=== PATIENT | male | born 1970 | race American Indian/Alaskan Native ===

== ENCOUNTER 2018-01-12 07:48 | Emergency (ER) | payer SELFPAY ==
--- NOTE | 2018-01-12 08:50 | XRay Report ---
CHEST TWO VIEWS: 01/12/18 08:36 CLINICAL: Shortness of breath. COMPARISON: None FINDINGS: Mild cardiomegaly. Central vascular congestion with indistinct pulmonary vessels and mild bilateral perihilar haziness. No pulmonary consolidation or pleural effusion. The bones and soft tissues are normal. No tubes or lines. IMPRESSION: CHF with mild perihilar pulmonary edema.
[2018-01-12 08:54] LABS: Basophils # (Auto) 0.1 K/mm3 (0.0-0.1); Basophils % (Auto) 1.2 % (0.0-1.8); Eosinophils # (Auto) 0.1 K/mm3 (0.0-0.4); Eosinophils % (Auto) 0.7 % (0.0-4.3); Hematocrit 41.1 % (35.5-45.6); Hemoglobin 13.5 gm/dl (11.8-15.2); Lymphocytes # (Auto) 2.5 K/mm3 (1.2-5.4); Lymphocytes % (Auto) 29.1 % (13.4-35.0); Mean Corpuscular HGB Conc 33 % (32-34); Mean Corpuscular Hemoglobin 31 pg (28-32); Mean Corpuscular Volume 94 fl (84-94); Monocytes # (Auto) 0.6 K/mm3 (0.0-0.8); Monocytes % (Auto) 7.3 % (0.0-7.3); Platelet Count 224 K/mm3 (140-440); Red Blood Count 4.37 M/mm3 (3.65-5.03)
[2018-01-12 09:06] LABS: BUN/Creatinine Ratio 14; Blood Urea Nitrogen 19 mg/dL (9-20); Calcium 8.9 mg/dL (8.4-10.2); Hemolysis Index 33
[2018-01-12] MEDS ORDERED: APRESOLINE IV ONE (11:34)
[2018-01-12] MEDS ORDERED: LASIX IV ONE (11:34)
--- NOTE | 2018-01-12 11:38 | Emergency Department Report ---
ED Shortness of Breath HPI - General Chief Complaint: Dyspnea/Respdistress Stated Complaint: JOSLYN Time Seen by Provider: 01/12/18 11:28 Source: patient Mode of arrival: Ambulatory Limitations: No Limitations - History of Present Illness Initial Comments: Patient is a 47-year-old male who has no significant past medical history who is presenting with shortness of breath. Patient states he has increased shortness of breath when he exerts himself as well as when he is lying flat. Patient states for the last 3-4 days he's had trouble sleeping because he is waking up short of breath. Patient also has had some intermittent very quick chest discomfort. Patient states there is no chest heaviness or persistent pain. The chest discomfort he rates it is minor. Patient denies any fevers chills. Patient does state when he is laying flat he does start coughing. Patient denies any leg swelling abdominal pain and nausea vomiting headaches at this time. - Related Data Previous Rx's Medication Instructions Recorded Last Taken Type Furosemide [Lasix] 20 mg PO QDAY #14 tablet 01/12/18 Unknown Rx Metoprolol [Lopressor] 25 mg PO BID #30 tablet 01/12/18 Unknown Rx Allergies Allergy/AdvReac Type Severity Reaction Status Date / Time No Known Allergies Allergy Unverified 01/12/18 08:04 ED Review of Systems ROS: Stated complaint: JOSLYN Other details as noted in HPI Comment: All other systems reviewed and negative ED Past Medical Hx - Past Medical History Hx Hypertension: Yes - Surgical History Past Surgical History?: No - Social History Smoking Status: Never Smoker Substance Use Type: Alcohol - Medications Home Medications: Home Medications Medication Instructions Recorded Confirmed Last Taken Type Furosemide [Lasix] 20 mg PO QDAY #14 tablet 01/12/18 Unknown Rx Metoprolol [Lopressor] 25 mg PO BID #30 tablet 01/12/18 Unknown Rx ED Physical Exam - General Limitations: No Limitations General appearance: alert, in no apparent distress - Head Head exam: Present: atraumatic, normocephalic - Eye Eye exam: Present: normal appearance - ENT ENT exam: Present: mucous membranes moist - Neck Neck exam: Present: normal inspection - Respiratory Respiratory exam: Present: normal lung sounds bilaterally, rales (bilateral base and very mild). Absent: respiratory distress, wheezes, rhonchi - Cardiovascular Cardiovascular Exam: Present: regular rate, normal rhythm. Absent: systolic murmur, diastolic murmur, rubs, gallop - GI/Abdominal GI/Abdominal exam: Present: soft, normal bowel sounds. Absent: distended, tenderness, guarding, rebound - Rectal Rectal exam: Present: deferred - Extremities Exam Extremities exam: Present: normal inspection - Back Exam Back exam: Present: normal inspection - Neurological Exam Neurological exam: Present: alert, oriented X3 - Psychiatric Psychiatric exam: Present: normal affect, normal mood - Skin Skin exam: Present: warm, dry, intact, normal color. Absent: rash ED Course Vital Signs 01/12/18 01/12/18 08:04 11:51 Temperature 97.5 F L Pulse Rate 113 H 114 H Respiratory 22 Rate Blood Pressure 169/127 147/101 O2 Sat by Pulse 97 Oximetry ED Medical Decision Making - Lab Data Result diagrams: 01/12/18 08:35 01/12/18 08:35 Lab Results 01/12/18 01/12/18 01/12/18 Range/Units 08:35 08:35 08:35 WBC 8.5 (4.5-11.0) K/mm3 RBC 4.37 (3.65-5.03) M/mm3 Hgb 13.5 (11.8-15.2) gm/dl Hct 41.1 (35.5-45.6) % MCV 94 (84-94) fl MCH 31 (28-32) pg MCHC 33 (32-34) % RDW 15.0 (13.2-15.2) % Plt Count 224 (140-440) K/mm3 Lymph % (Auto) 29.1 (13.4-35.0) % [place] % (Auto) 7.3 (0.0-7.3) % Eos % (Auto) 0.7 (0.0-4.3) % Baso % (Auto) 1.2 (0.0-1.8) % Lymph # 2.5 (1.2-5.4) K/mm3 [place] # 0.6 (0.0-0.8) K/mm3 Eos # 0.1 (0.0-0.4) K/mm3 Baso # 0.1 (0.0-0.1) K/mm3 Seg Neutrophils % 61.7 (40.0-70.0) % Seg Neutrophils # 5.2 (1.8-7.7) K/mm3 Sodium 140 (137-145) mmol/L Potassium 4.6 (3.6-5.0) mmol/L Chloride 103.2 (98-107) mmol/L Carbon Dioxide 23 (22-30) mmol/L Anion Gap 18 mmol/L BUN 19 (9-20) mg/dL Creatinine 1.4 (0.8-1.5) mg/dL Estimated GFR > 60 ml/min BUN/Creatinine Ratio 14 % Glucose 110 H (75-100) mg/dL Calcium 8.9 (8.4-10.2) mg/dL Troponin T < 0.010 (0.00-0.029) ng/mL NT-Pro-B Natriuret Pep 5029 H (0-450) pg/mL - EKG Data -: EKG Interpreted by Me EKG shows normal: axis, intervals, QRS complexes, ST-T waves Rate: tachycardia - EKG Data Interpretation: other (sinus tachycardia rate of 113.) - Radiology Data Chest x-ray shows cardiomegaly with mild pulmonary vascular congestion. - Medical Decision Making Patient was able to diurese and did walk around the department and felt much improved. Patient blood pressure improved as well. Patient will be referred to a primary care as well as cardiology for outpatient workup of mild congestive heart failure. Patient be started on blood pressure medicines as well as Lasix at home. Patient be discharged. Critical care attestation.: If time is entered above; I have spent that time in minutes in the direct care of this critically ill patient, excluding procedure time. ED Disposition Clinical Impression: Hypertensive urgency, malignant Congestive heart failure Qualifiers: Heart failure type: unspecified Heart failure chronicity: acute Qualified Code( s): I50.9 - Heart failure, unspecified Disposition: DC-01 TO HOME OR SELFCARE Is pt being admited?: No Does the pt Need Aspirin: No Condition: Stable Instructions: Heart Failure (ED), Hypertension (ED) Prescriptions: Furosemide [Lasix] 20 mg PO QDAY #14 tablet Metoprolol [Lopressor] 25 mg PO BID #30 tablet Referrals: JULIANA GARCIA MD [Staff Physician] - 3-5 Days [facility] [Outside] - 3-5 Days
[2018-01-12 13:20] VITALS: BP 147/96
== END 2018-01-12 13:18 | disposition home or self-care (01) ==
LOC: ED 07:48
DX: I16.0 Hypertensive urgency (principal); I11.0 Hypertensive heart disease with heart failure; I50.9 Heart failure, unspecified
CPT/HCPCS: 36415; 71046; 80048; 83880; 84484; 85025; 93005; 93010; 96374; 96375; 99284; J0360; J1940

== ENCOUNTER 2018-02-07 18:13 | Inpatient (IN) | payer OTHER ==
[2018-02-07] MEDS ORDERED: ASPIRIN PO ONE (18:24)
[2018-02-07 18:48] LABS: Basophils # (Auto) 0.1 K/mm3 (0.0-0.1); Basophils % (Auto) 1.2 % (0.0-1.8); Eosinophils % (Auto) 0.4 % (0.0-4.3); Hematocrit 42.1 % (35.5-45.6); Hemoglobin 13.9 gm/dl (11.8-15.2); Lymphocytes # (Auto) 3.3 K/mm3 (1.2-5.4); Lymphocytes % (Auto) 39.6 % (13.4-35.0); Mean Corpuscular HGB Conc 33 % (32-34); Mean Corpuscular Hemoglobin 31 pg (28-32); Mean Corpuscular Volume 95 fl (84-94); Monocytes # (Auto) 0.9 K/mm3 (0.0-0.8); Monocytes % (Auto) 10.5 % (0.0-7.3); Platelet Count 252 K/mm3 (140-440); Red Blood Count 4.45 M/mm3 (3.65-5.03); Red Cell Distribution Width 15.3 % (13.2-15.2)
[2018-02-07] MEDS ORDERED: LASIX IV ONE (20:32)
[2018-02-07] MEDS ORDERED: SUBLIMAZE IV ONE (20:46)
[2018-02-07] MEDS ORDERED: ASPIRIN ONE (21:06)
--- NOTE | 2018-02-07 22:07 | XRay Report ---
FINAL REPORT EXAM: XR CHEST 1V AP HISTORY: chest pain Dysnpea TECHNIQUE: Single, portable chest x-ray. PRIORS: None. FINDINGS: Moderate cardiomegaly. Lungs are normally expanded, without significant vascular congestion. No focal consolidation or apparent pneumothorax. Bony thorax grossly unremarkable. IMPRESSION: 1. Cardiomegaly. 2. No acute consolidation.
[2018-02-07 22:29] LABS: Calcium 8.9 mg/dL (8.4-10.2)
[2018-02-07] MEDS ORDERED: APRESOLINE IV ONE (22:58)
--- NOTE | 2018-02-07 23:02 | Emergency Department Report ---
HPI - General Chief Complaint: Dyspnea/Respdistress Time Seen by Provider: 02/07/18 20:31 - HPI HPI: The patient is a 47-year-old male with a significant history of poorly controlled hypertension, and recent probable diagnosis of heart failure, who presents for evaluation of dyspnea and chest pain. The patient reports midsternal chest pain for the past day, pressure-like in quality, exacerbated with exertion, currently mild in severity. He also has experienced worsened dyspnea from baseline for the past one week, severe, exacerbated with lying flat or exertion, improved with sitting up at rest. The patient denies trauma to the chest, cough, syncope, hemoptysis, unilateral leg swelling, recent immobilization, history of DVT or PE, hx of recent cancer. ED Past Medical Hx - Past Medical History Hx Hypertension: Yes Hx Congestive Heart Failure: Yes - Social History Smoking Status: Never Smoker Substance Use Type: None - Medications Home Medications: Home Medications Medication Instructions Recorded Confirmed Last Taken Type Furosemide [Lasix] 20 mg PO QDAY #14 tablet 01/12/18 Unknown Rx Metoprolol [Lopressor] 25 mg PO BID #30 tablet 01/12/18 Unknown Rx ED Review of Systems ROS: Stated complaint: DIFFICULTY BREATHING Other details as noted in HPI Constitutional: denies: fever ENT: denies: throat or neck pain Respiratory: denies: cough reports shortness of breath Cardiovascular: reports: chest pain Endocrine: denies unexplained weight loss or gain Gastrointestinal: denies: abdominal pain, nausea Genitourinary: denies: dysuria Musculoskeletal: denies: leg swelling Skin: denies: rash Neurological: denies: headache Hematological/Lymphatic: denies: easy bleeding or easy bruising Psych: denies sadness or hopelessness Physical Exam - Physical Exam Vital Signs: Vital Signs 02/07/18 02/07/18 02/07/18 18:21 21:31 22:00 Temperature 98 F Pulse Rate 123 H 121 H 113 H Respiratory 22 27 H 19 Rate Blood Pressure 150/112 140/106 146/97 O2 Sat by Pulse 99 98 96 Oximetry Physical Exam: General: well-nourished, well-developed, no acute distress Head: Normocephalic, atraumatic Eyes: normal sclera ENT: Mucous membranes are pink and moist Neck: trachea midline, neck supple, No neck stiffness, no cervical adenopathy Respiratory: Breath sounds equal bilaterally, no wheezing, rales, or rhonchi Cardio: S1 and S2 present, no murmurs, rubs, gallops, capillary refill is brisk Abdomen: Normoactive bowel sounds, soft abdomen, no rigidity, no guarding or rebound tenderness Musc: 1+ pitting edema of bilateral legs Skin: No rash Neuro: no facial drooping, normal speech Psych: Normal affect ED Course Vital Signs 02/07/18 02/07/18 02/07/18 18:21 21:31 22:00 Temperature 98 F Pulse Rate 123 H 121 H 113 H Respiratory 22 27 H 19 Rate Blood Pressure 150/112 140/106 146/97 O2 Sat by Pulse 99 98 96 Oximetry ED Medical Decision Making - Lab Data Result diagrams: 02/07/18 18:33 02/07/18 18:33 - Medical Decision Making The patient was seen and examined by myself. The patient is placed on a surveillance system monitor and continuous pulse ox. On initial evaluation, the patient was found to be in no distress. Evaluation orders were placed. The patient is given IV Lasix for treatment of CHF: IV fentanyl for his pain, and IV hydralazine for her elevated blood pressure. X-ray of the chest reveals cardio megaly. Lab results reveal severely elevated BNP of 5000, and an elevated creatinine of 1.7. EKG is negative for ST elevation or depression suggestive of acute cardiac infarct. The patient is given detailed aspirin. As patient has not received an echocardiogram confirming congestive heart failure diagnoses or stress test ruling out coronary disease, the patient be admitted for definitive diagnostic studies a cardiology evaluation. The on-call hospitalist service was contacted. They agreed to admit the patient for further treatment and close monitoring. The ED admit order was placed. The patient was admitted in guarded condition. Critical care attestation.: If time is entered above; I have spent that time in minutes in the direct care of this critically ill patient, excluding procedure time. ED Disposition Clinical Impression: Acute systolic CHF (congestive heart failure), Acute chest pain, Hypertensive urgency, SUPA (acute kidney injury) Disposition: OP ADMIT IP TO THIS HOSP Is pt being admited?: Yes Does the pt Need Aspirin: Yes Condition: Fair Instructions: Chest Pain (ED) Referrals: MICHELLE BEST MD [Primary Care Provider] - 3-5 Days Time of Disposition: 22:37
[2018-02-07] MEDS ORDERED: CARDIZEM PO ONE (23:50)
--- NOTE | 2018-02-07 23:55 | History and Physical Report ---
History of Present Illness Date of examination: 02/07/18 History of present illness: 47-year-old woman with a history of hypertension, CHF, diagnosed on January 12, comes to the emergency room with complaints of shortness of breath that has not improved since January 12. She was discharged on beta jose guadalupe and Lasix, he stated he is compliant with it. He admits to dyspnea on exertion, orthopnea, PND, lower extremity edema, dry cough. Also complaining of pain in his epigastric area, sharp, intermittent in nature for a few seconds, no radiation, can't identify exacerbating or relieving factors Review of systems Constitutional: no weight loss, chills, fever Ears, eyes, nose, mouth and throat: no nasal congestion, no nasal discharge, no sinus pressure, no vision change, no red eye. Neck: No neck pain or rigidity. Cardiovascular: no chest pain, palpitations Respiratory: no cough Gastrointestinal: no abdominal pain hematochezia Genitourinary :no frequency , no hematuria Musculoskeletal: no joint swelling or muscle ache Integumentary: no rash, no pruritis Neurological: no parathesias, no numbness, no focal weakness Endocrine: no cold or heat intolerance, no polyuria or polydipsia Hematologic/Lymphatic: no easy bruising, no easy bleeding, no gland swelling Allergic/Immunologic: no urticaria, no angioedema. PAST MEDICAL HISTORY: hypertension, CHF PAST SURGICAL HISTORY: None SOCIAL HISTORY: Drinks vodka alot, no drugs, smoke cigarettes FAMILY HISTORY: Hypertension Medications and Allergies Allergies Allergy/AdvReac Type Severity Reaction Status Date / Time No Known Allergies Allergy Unverified 01/12/18 08:04 Home Medications Medication Instructions Recorded Confirmed Last Taken Type Furosemide [Lasix] 20 mg PO QDAY #14 tablet 01/12/18 02/07/18 Unknown Rx Metoprolol [Lopressor] 25 mg PO BID #30 tablet 01/12/18 02/07/18 Unknown Rx Exam - Physical Exam Narrative exam: Gen. appearance: Patient lying in bed, no apparent distress HEENT: Normocephalic, atraumatic, pupils equally round and reactive to light, extraocular movement intact, and no sclericterus,. No JVD or thyromegaly or nodule,neck supple, no carotid bruit ,mucous membranes moist, no exudate or erythema Heart: S1, S2, regular rate and rhythm Lungs: Clear bilaterally, breathing comfortable Abdomen: Positive bowel sounds, non-tender, nondistended, no organomegaly Extremity:+edema, no cyanosis, clubbing Skin: no rash, dry, warm Neuro: Oriented 3, cranial nerves II-12 intact, speech is fluent, motor and sensory intact - Constitutional Vitals: Temp Pulse Resp BP Pulse Ox 98 F 115 H 18 141/112 96 02/07/18 18:21 02/07/18 23:45 02/07/18 23:45 02/07/18 23:45 02/07/18 23:45 Results - Labs CBC & Chem 7: 02/15/18 08:52 02/15/18 08:52 Labs: Abnormal lab results 02/07/18 02/07/18 02/07/18 Range/Units 18:33 18:33 20:39 MCV 95 H (84-94) fl RDW 15.3 H (13.2-15.2) % Lymph % (Auto) 39.6 H (13.4-35.0) % [place] % (Auto) 10.5 H (0.0-7.3) % [place] # 0.9 H (0.0-0.8) K/mm3 BUN 21 H (9-20) mg/dL Creatinine 1.7 H (0.8-1.5) mg/dL Glucose 68 L (75-100) mg/dL NT-Pro-B Natriuret Pep 5880 H (0-450) pg/mL - Imaging and Cardiology EKG: report reviewed Chest x-ray: report reviewed Assessment and Plan Assessment CHF, new onset, probably systolic Chest pain, rule out ACS Hypertension Acute renal insufficiency alcohol Abuse Plan Admit to medicine Diurese and IV Lasix, continue beta jose guadalupe, aspirin, hold MARGOT inhibitor secondary to renal insufficiency Check cardiac enzymes, echo, stress test consult cardiology DVT prophylaxis, start CIWA protocol with IV ativan
[2018-02-08] MEDS ORDERED: ZOFRAN IV PRN (00:59)
[2018-02-08] MEDS ORDERED: SODIUM CHLORIDE FLUSH SYRINGE 10 ML IV PRN (00:59)
[2018-02-08] MEDS ORDERED: ATIVAN IV PRN ×2 (01:06)
[2018-02-08] MEDS ORDERED: LASIX IV SCH (06:00)
[2018-02-08 07:05] LABS: Basophils % (Auto) 0.7 % (0.0-1.8); Eosinophils % (Auto) 0.7 % (0.0-4.3); Hematocrit 40.5 % (35.5-45.6); Hemoglobin 13.3 gm/dl (11.8-15.2); Lymphocytes # (Auto) 2.9 K/mm3 (1.2-5.4); Lymphocytes % (Auto) 40.9 % (13.4-35.0); Mean Corpuscular HGB Conc 33 % (32-34); Mean Corpuscular Hemoglobin 31 pg (28-32); Mean Corpuscular Volume 95 fl (84-94); Monocytes # (Auto) 0.7 K/mm3 (0.0-0.8); Monocytes % (Auto) 9.8 % (0.0-7.3); Platelet Count 205 K/mm3 (140-440); Red Blood Count 4.26 M/mm3 (3.65-5.03); Red Cell Distribution Width 15.4 % (13.2-15.2)
[2018-02-08 07:28] LABS: Calcium 8.8 mg/dL (8.4-10.2)
[2018-02-08 07:29] LABS: Creatine Kinase MB 2.7 ng/mL (0.0-4.0)
--- NOTE | 2018-02-08 09:18 | Consultation ---
History of Present Illness Consult date: 02/08/18 Consult reason: shortness of breath History of present illness: 47 year old male admitted with worsening shortness of breath x 1 month. No previous medical history. Admits to alcohol binging on a daily basis. Denies illicit drug use Past History Past Medical History: No medical history Past Surgical History: No surgical history Social history: alcohol abuse Family history: no significant family history Medications and Allergies Allergies Allergy/AdvReac Type Severity Reaction Status Date / Time No Known Allergies Allergy Unverified 01/12/18 08:04 Home Medications Medication Instructions Recorded Confirmed Last Taken Type Furosemide [Lasix] 20 mg PO QDAY #14 tablet 01/12/18 02/07/18 Unknown Rx Metoprolol [Lopressor] 25 mg PO BID #30 tablet 01/12/18 02/07/18 Unknown Rx Active Meds: Active Medications Acetaminophen (Tylenol) 650 mg PO Q4H PRN PRN Reason: Pain MILD(1-3)/Fever >100.5/JOHNSON Aspirin (Aspirin) 325 mg PO QDAY [facility] Carvedilol (Coreg) 6.25 mg PO BID [facility] Enoxaparin Sodium (Lovenox) 30 mg SUB-Q QDAY [facility] Folic Acid (Folvite) 1 mg PO QDAY [facility] Furosemide (Lasix) 40 mg IV BID@0600,1800 ROBERT Last Admin: 02/08/18 06:32 Dose: 40 mg Lorazepam (Ativan) 2 mg IV Q1HR PRN PRN Reason: CIWA-Ar 8-15 Lorazepam (Ativan) 4 mg IV Q1HR PRN PRN Reason: CIWA-Ar 16-25 Morphine Sulfate (Morphine) 2 mg IV Q4H PRN PRN Reason: Pain, Moderate (4-6) Ondansetron HCl (Zofran) 4 mg IV Q8H PRN PRN Reason: Nausea And Vomiting Sodium Chloride (Sodium Chloride Flush Syringe 10 Ml) 10 ml IV BID [facility] Sodium Chloride (Sodium Chloride Flush Syringe 10 Ml) 10 ml IV PRN PRN PRN Reason: LINE FLUSH Last Admin: 02/08/18 06:32 Dose: 10 ml Thiamine HCl (Vitamin B-1) 100 mg PO QDAY [facility] Review of Systems All systems: negative Physical Examination Vital Signs Temp Pulse Resp BP Pulse Ox 98 F 123 H 22 150/112 99 02/07/18 18:21 02/07/18 18:21 02/07/18 18:21 02/07/18 18:21 02/07/18 18:21 General appearance: no acute distress HEENT: Positive: PERRL Neck: Positive: neck supple Cardiac: Positive: Reg Rate and Rhythm Lungs: Positive: Normal Exam Neuro: Positive: Grossly Intact Abdomen: Positive: Soft Results 02/08/18 06:10 02/08/18 06:10 Cardiac Enzymes 02/08/18 02/08/18 Range/Units 01:27 06:10 CK-MB (CK-2) 3.0 2.7 (0.0-4.0) ng/mL CBC 02/07/18 02/08/18 Range/Units 18:33 06:10 WBC 8.4 7.1 (4.5-11.0) K/mm3 RBC 4.45 4.26 (3.65-5.03) M/mm3 Hgb 13.9 13.3 (11.8-15.2) gm/dl Hct 42.1 40.5 (35.5-45.6) % Plt Count 252 205 (140-440) K/mm3 Lymph # 3.3 2.9 (1.2-5.4) K/mm3 [place] # 0.9 H 0.7 (0.0-0.8) K/mm3 Eos # 0.0 0.0 (0.0-0.4) K/mm3 Baso # 0.1 0.0 (0.0-0.1) K/mm3 Comprehensive Metabolic Panel 02/07/18 02/08/18 Range/Units 18:33 06:10 Sodium 142 143 (137-145) mmol/L Potassium 4.2 4.2 (3.6-5.0) mmol/L Chloride 104.3 104.6 (98-107) mmol/L Carbon Dioxide 22 23 (22-30) mmol/L BUN 21 H 22 H (9-20) mg/dL Creatinine 1.7 H 1.6 H (0.8-1.5) mg/dL Glucose 68 L 79 (75-100) mg/dL Calcium 8.9 8.8 (8.4-10.2) mg/dL - EKG Interpretation EKG: sinus rhythm EKG interpretations - Telemetry EKG Rhythm: Sinus Rhythm Assessment and Plan Shortness of breath Elevated BNP Cardiomegaly Alcohol abuse Abnormal ECG Systemic Hypertension Recommendations: Echocardiogram to evaluate LVEF UDS, TSH Nuclear stress test prior to discharge
[2018-02-08] MEDS ORDERED: LOVENOX SUB-Q SCH ×2 (10:00)
[2018-02-08] MEDS: FOLVITE PO SCH (10:43)
[2018-02-08] MEDS: COREG PO SCH ×2 (10:43→22:52)
[2018-02-08] MEDS: VITAMIN B-1 PO SCH (10:43)
[2018-02-08] MEDS: ASPIRIN PO SCH (10:43)
[2018-02-08] MEDS: SODIUM CHLORIDE FLUSH SYRINGE 10 ML IV SCH ×2 (10:44→22:57)
[2018-02-08] MEDS: LASIX IV SCH (10:44)
[2018-02-08] MEDS ORDERED: APRESOLINE IV PRN (11:31)
[2018-02-08 14:18] LABS: INR 1.09 (0.87-1.13)
--- NOTE | 2018-02-08 14:51 | Nuclear Medicine Report ---
LUNG SCAN, VENTILATION AND PERFUSION: History: Pulmonary embolus. Technique: 5mci of Tc99m MAA was infused for the perfusion images. 15mci XE 133 gas was inhaled for the ventilatory images. Correlation is made with a chest x-ray dated 02/07/18. Findings: Inhalation of Xenon gas demonstrates a normal distribution of the activity throughout both lungs. The wash out phases show no focal retention of activity. After injection of Technetium 99m macroaggregated albumin gamma camera imaging of the lungs in multiple projections demonstrates normal pulmonary contours with a homogeneous distribution of activity. No focal areas of perfusion deficiency are identified. IMPRESSION: Low probability for pulmonary embolus.
--- NOTE | 2018-02-08 16:33 | Progress Note ---
Assessment and Plan Assessment and plan: 47-year-old woman with a history of hypertension, CHF, diagnosed on January 12, comes to the emergency room with complaints of shortness of breath that has not improved since January 12. She was discharged on beta jose guadalupe and Lasix, he stated he is compliant with it. He admits to dyspnea on exertion, orthopnea, PND, lower extremity edema, dry cough. Also complaining of pain in his epigastric area, sharp, intermittent in nature for a few seconds, no radiation, can't identify exacerbating or relieving factors CHF, new onset, probably systolic Chest pain, rule out ACS Severe cardiomyopathy with Large Apical Thrombus in the LV Alcohol induced cardiomyopathy Acute Respiratory failure Cardiomegaly Hypertension Acute renal insufficiency alcohol Abuse PLAN Supportive care Cardiology input noted Started on anticoagulation with lovenox bid, with bridging coumadin therapy ACEI Extensive counselling on Avoiding ETOH STRESS TEST PRIOR TO DISCHARGE [facility] Protocol dvt/gi PROPHY History Interval history: Patient seen and examined, still with some shortness of breath, no new chest pain Hospitalist Physical - Physical exam Narrative exam: VITAL SIGNS: Reviewed. GENERAL: The patient appeared well nourished and normally developed. Vital signs as documented. HEAD: No signs of head trauma. EYES: Pupils are equal. Extraocular motions intact. EARS: Hearing grossly intact. MOUTH: Oropharynx is normal. NECK: No adenopathy, no JVD. CHEST: Chest with clear breath sounds bilaterally. No wheezes, rales, or rhonchi. CARDIAC: Regular rate and rhythm. S1 and S2, without murmurs, gallops, or rubs. VASCULAR: No Edema. Peripheral pulses normal and equal in all extremities. ABDOMEN: Soft, without detectable tenderness. No sign of distention. No rebound or guarding, and no masses palpated. Bowel Sounds normal. MUSCULOSKELETAL: Good range of motion of all major joints. Extremities without clubbing, cyanosis or edema. NEUROLOGIC EXAM: Alert and oriented x 3. No focal sensory or strength deficits. Speech normal. Follows commands. PSYCHIATRIC: Mood normal. SKIN: No rash or lesions. - Constitutional Vitals: Temp Pulse Resp BP Pulse Ox 98.0 F 119 H 17 139/109 99 02/08/18 12:20 02/08/18 12:20 02/08/18 12:20 02/08/18 12:20 02/08/18 12:20 General appearance: Present: no acute distress Results - Labs CBC & Chem 7: 02/08/18 06:10 02/08/18 06:10 Labs: Laboratory Last Values WBC 7.1 K/mm3 (4.5-11.0) 02/08/18 06:10 RBC 4.26 M/mm3 (3.65-5.03) 02/08/18 06:10 Hgb 13.3 gm/dl (11.8-15.2) 02/08/18 06:10 Hct 40.5 % (35.5-45.6) 02/08/18 06:10 MCV 95 fl (84-94) H 02/08/18 06:10 MCH 31 pg (28-32) 02/08/18 06:10 MCHC 33 % (32-34) 02/08/18 06:10 RDW 15.4 % (13.2-15.2) H 02/08/18 06:10 Plt Count 205 K/mm3 (140-440) 02/08/18 06:10 Lymph % (Auto) 40.9 % (13.4-35.0) H 02/08/18 06:10 [place] % (Auto) 9.8 % (0.0-7.3) H 02/08/18 06:10 Eos % (Auto) 0.7 % (0.0-4.3) 02/08/18 06:10 Baso % (Auto) 0.7 % (0.0-1.8) 02/08/18 06:10 Lymph # 2.9 K/mm3 (1.2-5.4) 02/08/18 06:10 [place] # 0.7 K/mm3 (0.0-0.8) 02/08/18 06:10 Eos # 0.0 K/mm3 (0.0-0.4) 02/08/18 06:10 Baso # 0.0 K/mm3 (0.0-0.1) 02/08/18 06:10 Seg Neutrophils % 47.9 % (40.0-70.0) 02/08/18 06:10 Seg Neutrophils # 3.4 K/mm3 (1.8-7.7) 02/08/18 06:10 PT 14.7 Sec. (12.2-14.9) 02/08/18 13:39 INR 1.09 (0.87-1.13) 02/08/18 13:39 D-Dimer 1197.91 ng/mlDDU (0-234) H 02/08/18 00:22 Sodium 143 mmol/L (137-145) 02/08/18 06:10 Potassium 4.2 mmol/L (3.6-5.0) 02/08/18 06:10 Chloride 104.6 mmol/L (98-107) 02/08/18 06:10 Carbon Dioxide 23 mmol/L (22-30) 02/08/18 06:10 Anion Gap 20 mmol/L 02/08/18 06:10 BUN 22 mg/dL (9-20) H 02/08/18 06:10 Creatinine 1.6 mg/dL (0.8-1.5) H 02/08/18 06:10 Estimated GFR 57 ml/min 02/08/18 06:10 BUN/Creatinine Ratio 14 % 02/08/18 06:10 Glucose 79 mg/dL (75-100) 02/08/18 06:10 Calcium 8.8 mg/dL (8.4-10.2) 02/08/18 06:10 Total Creatine Kinase 389 units/L (55-170) H 02/08/18 06:10 CK-MB (CK-2) 2.7 ng/mL (0.0-4.0) 02/08/18 06:10 CK-MB (CK-2) Rel Index 0.6 (0-4) 02/08/18 06:10 Troponin T < 0.010 ng/mL (0.00-0.029) 02/08/18 06:10 NT-Pro-B Natriuret Pep 5880 pg/mL (0-450) H 02/07/18 20:39 TSH 1.760 mlU/mL (0.270-4.200) 02/08/18 09:43
[2018-02-08] MEDS: ZESTRIL PO SCH (18:22)
[2018-02-08] MEDS: COUMADIN PO SCH (18:24)
[2018-02-08] MEDS: LOVENOX SUB-Q SCH (22:54)
[2018-02-09 00:47] LABS: Amphetamine Screen,Urine PRESUMPTIVE NEGATIVE; Benzodiazepines Screen,Urine PRESUMPTIVE NEGATIVE; Cannabinoid Screen,Urine PRESUMPTIVE NEGATIVE; Cocaine Screen,Urine PRESUMPTIVE NEGATIVE; Methadone Screen,Urine PRESUMPTIVE NEGATIVE; Opiate Screen,Urine PRESUMPTIVE NEGATIVE
[2018-02-09 05:59] LABS: Hematocrit 41.6 % (35.5-45.6); Hemoglobin 13.6 gm/dl (11.8-15.2); Mean Corpuscular HGB Conc 33 % (32-34); Mean Corpuscular Hemoglobin 31 pg (28-32); Mean Corpuscular Volume 95 fl (84-94); Red Blood Count 4.38 M/mm3 (3.65-5.03); Red Cell Distribution Width 14.9 % (13.2-15.2)
[2018-02-09 06:04] LABS: Platelet Count 216 K/mm3 (140-440)
--- NOTE | 2018-02-09 09:49 | Progress Note ---
Assessment and Plan Acute systolic heart failure -uncertain duration Echo is showing 4 chamber dilatation, LVEF 5-10% with a large apical thrombus LV thrombus initiated on warfarin with lovenox bridge no evidence of DVT by venous duplex low probability for PE by V/Q scan Acute renal failure Hypertension Alcohol abuse Recommendations: Medical therapy for systolic heart failure and LV thrombus. Advise alcohol abstinence. Ischemic evaluation with thallium stress test is scheduled for tomorrow morning. Subjective Date of service: 02/09/18 Interval history: Stress thallium test is planned for Tuesday. Patient had a V/Q scan yesterday and has to wait 48hr wash out. Objective Vital Signs Temp Pulse Resp BP BP Pulse Ox 02/09/18 00:00 98.3 F 105 H 20 108/78 98 02/08/18 22:02 98 02/08/18 20:56 97.7 F 115 H 20 116/88 98 02/08/18 19:52 110 H 02/08/18 18:22 107 H 02/08/18 12:20 98.0 F 119 H 17 139/109 99 02/08/18 09:50 99 - Physical Examination General: No Apparent Distress HEENT: Positive: PERRL Cardiac: Positive: Reg Rate and Rhythm Neuro: Positive: Grossly Intact Extremities: Absent: edema - Labs and Meds Coagulation 02/08/18 Range/Units 13:39 PT 14.7 (12.2-14.9) Sec. INR 1.09 (0.87-1.13) CBC 02/09/18 Range/Units 05:24 WBC 7.4 (4.5-11.0) K/mm3 RBC 4.38 (3.65-5.03) M/mm3 Hgb 13.6 (11.8-15.2) gm/dl Hct 41.6 (35.5-45.6) % Plt Count 216 (140-440) K/mm3 Comprehensive Metabolic Panel 02/09/18 Range/Units 05:24 Sodium 143 (137-145) mmol/L Potassium 4.8 (3.6-5.0) mmol/L Chloride 102.2 (98-107) mmol/L Carbon Dioxide 24 (22-30) mmol/L BUN 26 H (9-20) mg/dL Creatinine 1.7 H (0.8-1.5) mg/dL Glucose 100 (75-100) mg/dL Calcium 9.0 (8.4-10.2) mg/dL
[2018-02-09] MEDS: LOVENOX SUB-Q SCH ×2 (10:49→22:48)
[2018-02-09] MEDS: FOLVITE PO SCH (10:50)
[2018-02-09] MEDS: COREG PO SCH ×2 (10:50→22:48)
[2018-02-09] MEDS: ZESTRIL PO SCH (10:50)
[2018-02-09] MEDS: ASPIRIN PO SCH (10:50)
[2018-02-09] MEDS: VITAMIN B-1 PO SCH (10:50)
[2018-02-09] MEDS: LASIX IV SCH (10:51)
[2018-02-09] MEDS: SODIUM CHLORIDE FLUSH SYRINGE 10 ML IV SCH ×2 (10:51→22:48)
[2018-02-09] MEDS: COUMADIN PO SCH (16:56)
--- NOTE | 2018-02-09 17:59 | Progress Note ---
Assessment and Plan Assessment and plan: 47-year-old woman with a history of hypertension, CHF, diagnosed on January 12, comes to the emergency room with complaints of shortness of breath that has not improved since January 12. She was discharged on beta jose guadalupe and Lasix, he stated he is compliant with it. He admits to dyspnea on exertion, orthopnea, PND, lower extremity edema, dry cough. Also complaining of pain in his epigastric area, sharp, intermittent in nature for a few seconds, no radiation, can't identify exacerbating or relieving factors CHF, new onset, probably systolic Chest pain, rule out ACS Severe cardiomyopathy with Large Apical Thrombus in the LV Alcohol induced cardiomyopathy Acute Respiratory failure Cardiomegaly Hypertension Acute renal insufficiency alcohol Abuse PLAN Supportive care Cardiology input noted Started on anticoagulation with lovenox bid, with bridging coumadin therapy ACEI Extensive counselling on Avoiding ETOH STRESS TEST in am PRIOR TO DISCHARGE [facility] Protocol- no withdrawal at this time dvt/gi PROPHY plan discussed with patient and family History Interval history: Patient seen and examined, Reports of improvement with symptoms but not at baseline Hospitalist Physical - Physical exam Narrative exam: VITAL SIGNS: Reviewed. GENERAL: The patient appeared well nourished and normally developed. Vital signs as documented. HEAD: No signs of head trauma. EYES: Pupils are equal. Extraocular motions intact. EARS: Hearing grossly intact. MOUTH: Oropharynx is normal. NECK: No adenopathy, no JVD. CHEST: Chest with clear breath sounds bilaterally. No wheezes, rales, or rhonchi. CARDIAC: Regular rate and rhythm. S1 and S2, without murmurs, gallops, or rubs. VASCULAR: No Edema. Peripheral pulses normal and equal in all extremities. ABDOMEN: Soft, without detectable tenderness. No sign of distention. No rebound or guarding, and no masses palpated. Bowel Sounds normal. MUSCULOSKELETAL: Good range of motion of all major joints. Extremities without clubbing, cyanosis or edema. NEUROLOGIC EXAM: Alert and oriented x 3. No focal sensory or strength deficits. Speech normal. Follows commands. PSYCHIATRIC: Mood normal. SKIN: No rash or lesions. - Constitutional Vitals: Temp Pulse Resp BP Pulse Ox 98.3 F 97 H 20 108/78 99 02/09/18 00:00 02/09/18 07:00 02/09/18 00:00 02/09/18 00:00 02/09/18 09:55 General appearance: Present: no acute distress Results - Labs CBC & Chem 7: 02/09/18 05:24 02/09/18 05:24 Labs: Laboratory Last Values WBC 7.4 K/mm3 (4.5-11.0) 02/09/18 05:24 RBC 4.38 M/mm3 (3.65-5.03) 02/09/18 05:24 Hgb 13.6 gm/dl (11.8-15.2) 02/09/18 05:24 Hct 41.6 % (35.5-45.6) 02/09/18 05:24 MCV 95 fl (84-94) H 02/09/18 05:24 MCH 31 pg (28-32) 02/09/18 05:24 MCHC 33 % (32-34) 02/09/18 05:24 RDW 14.9 % (13.2-15.2) 02/09/18 05:24 Plt Count 216 K/mm3 (140-440) 02/09/18 05:24 Lymph % (Auto) 40.9 % (13.4-35.0) H 02/08/18 06:10 [place] % (Auto) 9.8 % (0.0-7.3) H 02/08/18 06:10 Eos % (Auto) 0.7 % (0.0-4.3) 02/08/18 06:10 Baso % (Auto) 0.7 % (0.0-1.8) 02/08/18 06:10 Lymph # 2.9 K/mm3 (1.2-5.4) 02/08/18 06:10 [place] # 0.7 K/mm3 (0.0-0.8) 02/08/18 06:10 Eos # 0.0 K/mm3 (0.0-0.4) 02/08/18 06:10 Baso # 0.0 K/mm3 (0.0-0.1) 02/08/18 06:10 Seg Neutrophils % 47.9 % (40.0-70.0) 02/08/18 06:10 Seg Neutrophils # 3.4 K/mm3 (1.8-7.7) 02/08/18 06:10 PT 14.7 Sec. (12.2-14.9) 02/08/18 13:39 INR 1.09 (0.87-1.13) 02/08/18 13:39 D-Dimer 1197.91 ng/mlDDU (0-234) H 02/08/18 00:22 Sodium 143 mmol/L (137-145) 02/09/18 05:24 Potassium 4.8 mmol/L (3.6-5.0) 02/09/18 05:24 Chloride 102.2 mmol/L (98-107) 02/09/18 05:24 Carbon Dioxide 24 mmol/L (22-30) 02/09/18 05:24 Anion Gap 22 mmol/L 02/09/18 05:24 BUN 26 mg/dL (9-20) H 02/09/18 05:24 Creatinine 1.7 mg/dL (0.8-1.5) H 02/09/18 05:24 Estimated GFR 53 ml/min 02/09/18 05:24 BUN/Creatinine Ratio 15 % 02/09/18 05:24 Glucose 100 mg/dL (75-100) 02/09/18 05:24 Calcium 9.0 mg/dL (8.4-10.2) 02/09/18 05:24 Total Creatine Kinase 389 units/L (55-170) H 02/08/18 06:10 CK-MB (CK-2) 2.7 ng/mL (0.0-4.0) 02/08/18 06:10 CK-MB (CK-2) Rel Index 0.6 (0-4) 02/08/18 06:10 Troponin T < 0.010 ng/mL (0.00-0.029) 02/08/18 06:10 NT-Pro-B Natriuret Pep 5880 pg/mL (0-450) H 02/07/18 20:39 TSH 1.760 mlU/mL (0.270-4.200) 02/08/18 09:43 Urine Opiates Screen Presumptive negative 02/08/18 Unknown Urine Methadone Screen Presumptive negative 02/08/18 Unknown Ur Barbiturates Screen Presumptive negative 02/08/18 Unknown Ur Phencyclidine Scrn Presumptive negative 02/08/18 Unknown Ur Amphetamines Screen Presumptive negative 02/08/18 Unknown U Benzodiazepines Scrn Presumptive negative 02/08/18 Unknown Urine Cocaine Screen Presumptive negative 02/08/18 Unknown U Marijuana (THC) Screen Presumptive negative 02/08/18 Unknown Drugs of Abuse Note Disclamer 02/08/18 Unknown
[2018-02-10 06:00] LABS: INR 1.22 (0.87-1.13)
[2018-02-10 06:14] LABS: Calcium 8.6 mg/dL (8.4-10.2)
[2018-02-10] MEDS ORDERED: LEXISCAN IV ONE ×2 (08:16→08:19)
[2018-02-10] MEDS: ZESTRIL PO SCH (09:57)
[2018-02-10] MEDS: FOLVITE PO SCH (09:58)
[2018-02-10] MEDS: LOVENOX SUB-Q SCH ×2 (09:58→22:12)
[2018-02-10] MEDS: ASPIRIN PO SCH (09:58)
[2018-02-10] MEDS: COREG PO SCH ×2 (09:58→22:18)
[2018-02-10] MEDS: LASIX IV SCH (09:58)
[2018-02-10] MEDS: VITAMIN B-1 PO SCH (09:58)
[2018-02-10] MEDS: SODIUM CHLORIDE FLUSH SYRINGE 10 ML IV SCH ×2 (09:59→22:13)
--- NOTE | 2018-02-10 11:12 | Progress Note ---
Assessment and Plan Acute systolic heart failure -uncertain duration Echo is showing 4 chamber dilatation, LVEF 5-10% with a large apical thrombus MPI this admission showing no ischemia with findings consistent with non- ischemic cardiomyopathy LV thrombus initiated on warfarin with lovenox bridge no evidence of DVT by venous duplex low probability for PE by V/Q scan Acute renal failure Hypertension Alcohol abuse Recommendations: Medical therapy for systolic heart failure, non-ischemic cardiomyopathy and LV thrombus. Advise alcohol abstinence. Outpatient follow-up Subjective Date of service: 02/10/18 Principal diagnosis: CHF Interval history: No events overnight Lexiscan performed today - no complications Objective Vital Signs Temp Pulse Resp Resp BP BP Pulse Ox 02/10/18 08:36 108 H 135/95 02/10/18 08:35 108 H 139/105 02/10/18 08:34 108 H 124/85 02/10/18 08:33 109 H 128/99 02/10/18 08:32 103 H 134/97 02/10/18 08:25 102 H 122/101 02/10/18 04:30 97.5 F L 96 H 20 106/77 99 02/10/18 01:24 98.4 F 95 H 20 114/80 100 02/09/18 22:48 102 H 117/84 02/09/18 21:58 100 02/09/18 21:28 99 H 02/09/18 21:07 98.0 F 102 H 20 117/84 98 02/09/18 20:10 18 18 98 02/09/18 16:41 98.1 F 96 H 121/92 - Physical Examination General: No Apparent Distress HEENT: Positive: PERRL Neck: Positive: neck supple Cardiac: Positive: Reg Rate and Rhythm Lungs: Positive: Normal Exam Neuro: Positive: Grossly Intact Abdomen: Positive: Soft Extremities: Absent: edema - Labs and Meds Coagulation 02/10/18 Range/Units 05:16 PT 16.1 H (12.2-14.9) Sec. INR 1.22 H (0.87-1.13) Comprehensive Metabolic Panel 02/10/18 Range/Units 05:16 Sodium 139 (137-145) mmol/L Potassium 4.5 (3.6-5.0) mmol/L Chloride 102.1 (98-107) mmol/L Carbon Dioxide 26 (22-30) mmol/L BUN 27 H (9-20) mg/dL Creatinine 1.7 H (0.8-1.5) mg/dL Glucose 96 (75-100) mg/dL Calcium 8.6 (8.4-10.2) mg/dL - Imaging and Cardiology EKG: report reviewed
[2018-02-10] MEDS: COUMADIN PO SCH (17:31)
--- NOTE | 2018-02-10 18:03 | Progress Note ---
Assessment and Plan Assessment and plan: 47-year-old woman with a history of hypertension, CHF, diagnosed on January 12, comes to the emergency room with complaints of shortness of breath that has not improved since January 12. She was discharged on beta jose guadalupe and Lasix, he stated he is compliant with it. He admits to dyspnea on exertion, orthopnea, PND, lower extremity edema, dry cough. Also complaining of pain in his epigastric area, sharp, intermittent in nature for a few seconds, no radiation, can't identify exacerbating or relieving factors CHF, new onset, probably systolic Chest pain, rule out ACS Severe cardiomyopathy with Large Apical Thrombus in the LV Alcohol induced cardiomyopathy Acute Respiratory failure Cardiomegaly Hypertension Acute renal insufficiency alcohol Abuse PLAN Supportive care Cardiology input noted Started on anticoagulation with lovenox bid, with bridging coumadin therapy ACEI Extensive counselling on Avoiding ETOH Discharge once INR therapeutic at 2-3. Patient uninsured [facility] Protocol- no withdrawal at this time dvt/gi PROPHY plan discussed with patient and family History Interval history: Patient seen and examined, Reports of improvement with symptoms WANTS TO GO HOME Hospitalist Physical - Physical exam Narrative exam: VITAL SIGNS: Reviewed. GENERAL: The patient appeared well nourished and normally developed. Vital signs as documented. HEAD: No signs of head trauma. EYES: Pupils are equal. Extraocular motions intact. EARS: Hearing grossly intact. MOUTH: Oropharynx is normal. NECK: No adenopathy, no JVD. CHEST: Chest with clear breath sounds bilaterally. No wheezes, rales, or rhonchi. CARDIAC: Regular rate and rhythm. S1 and S2, without murmurs, gallops, or rubs. VASCULAR: No Edema. Peripheral pulses normal and equal in all extremities. ABDOMEN: Soft, without detectable tenderness. No sign of distention. No rebound or guarding, and no masses palpated. Bowel Sounds normal. MUSCULOSKELETAL: Good range of motion of all major joints. Extremities without clubbing, cyanosis or edema. NEUROLOGIC EXAM: Alert and oriented x 3. No focal sensory or strength deficits. Speech normal. Follows commands. PSYCHIATRIC: Mood normal. SKIN: No rash or lesions. - Constitutional Vitals: Temp Pulse Resp BP Pulse Ox 97.6 F 98 H 16 122/93 99 02/10/18 15:25 02/10/18 15:25 02/10/18 15:25 02/10/18 15:25 02/10/18 15:25 General appearance: Present: no acute distress Results - Labs CBC & Chem 7: 02/09/18 05:24 02/10/18 05:16 Labs: Laboratory Last Values WBC 7.4 K/mm3 (4.5-11.0) 02/09/18 05:24 RBC 4.38 M/mm3 (3.65-5.03) 02/09/18 05:24 Hgb 13.6 gm/dl (11.8-15.2) 02/09/18 05:24 Hct 41.6 % (35.5-45.6) 02/09/18 05:24 MCV 95 fl (84-94) H 02/09/18 05:24 MCH 31 pg (28-32) 02/09/18 05:24 MCHC 33 % (32-34) 02/09/18 05:24 RDW 14.9 % (13.2-15.2) 02/09/18 05:24 Plt Count 216 K/mm3 (140-440) 02/09/18 05:24 Lymph % (Auto) 40.9 % (13.4-35.0) H 02/08/18 06:10 [place] % (Auto) 9.8 % (0.0-7.3) H 02/08/18 06:10 Eos % (Auto) 0.7 % (0.0-4.3) 02/08/18 06:10 Baso % (Auto) 0.7 % (0.0-1.8) 02/08/18 06:10 Lymph # 2.9 K/mm3 (1.2-5.4) 02/08/18 06:10 [place] # 0.7 K/mm3 (0.0-0.8) 02/08/18 06:10 Eos # 0.0 K/mm3 (0.0-0.4) 02/08/18 06:10 Baso # 0.0 K/mm3 (0.0-0.1) 02/08/18 06:10 Seg Neutrophils % 47.9 % (40.0-70.0) 02/08/18 06:10 Seg Neutrophils # 3.4 K/mm3 (1.8-7.7) 02/08/18 06:10 PT 16.1 Sec. (12.2-14.9) H 02/10/18 05:16 INR 1.22 (0.87-1.13) H 02/10/18 05:16 D-Dimer 1197.91 ng/mlDDU (0-234) H 02/08/18 00:22 Sodium 139 mmol/L (137-145) 02/10/18 05:16 Potassium 4.5 mmol/L (3.6-5.0) 02/10/18 05:16 Chloride 102.1 mmol/L (98-107) 02/10/18 05:16 Carbon Dioxide 26 mmol/L (22-30) 02/10/18 05:16 Anion Gap 15 mmol/L 02/10/18 05:16 BUN 27 mg/dL (9-20) H 02/10/18 05:16 Creatinine 1.7 mg/dL (0.8-1.5) H 02/10/18 05:16 Estimated GFR 53 ml/min 02/10/18 05:16 BUN/Creatinine Ratio 16 % 02/10/18 05:16 Glucose 96 mg/dL (75-100) 02/10/18 05:16 Calcium 8.6 mg/dL (8.4-10.2) 02/10/18 05:16 Total Creatine Kinase 389 units/L (55-170) H 02/08/18 06:10 CK-MB (CK-2) 2.7 ng/mL (0.0-4.0) 02/08/18 06:10 CK-MB (CK-2) Rel Index 0.6 (0-4) 02/08/18 06:10 Troponin T < 0.010 ng/mL (0.00-0.029) 02/08/18 06:10 NT-Pro-B Natriuret Pep 5880 pg/mL (0-450) H 02/07/18 20:39 TSH 1.760 mlU/mL (0.270-4.200) 02/08/18 09:43 Urine Opiates Screen Presumptive negative 02/08/18 Unknown Urine Methadone Screen Presumptive negative 02/08/18 Unknown Ur Barbiturates Screen Presumptive negative 02/08/18 Unknown Ur Phencyclidine Scrn Presumptive negative 02/08/18 Unknown Ur Amphetamines Screen Presumptive negative 02/08/18 Unknown U Benzodiazepines Scrn Presumptive negative 02/08/18 Unknown Urine Cocaine Screen Presumptive negative 02/08/18 Unknown U Marijuana (THC) Screen Presumptive negative 02/08/18 Unknown Drugs of Abuse Note Disclamer 02/08/18 Unknown
--- NOTE | 2018-02-10 23:11 | Treadmill Report ---
INDICATION FOR THE PROCEDURE: Cardiomyopathy ORDERING PHYSICIAN: Elsa Alvarado MD FINDINGS: The left ventricular cavity is moderately dilated. There is no scintigraphic evidence of myocardial ischemia. There is evidence of severe global left ventricular hypokinesis. The ejection fraction is measured at 16%. Findings are consistent with nonischemic cardiomyopathy. CONCLUSION: 1. Moderately dilated left ventricular cavity with severe global left ventricular hypokinesis and no evidence of scintigraphic myocardial ischemia. 2. Findings are consistent with nonischemic cardiomyopathy, left ventricular ejection fraction measured at 16%. JOB# [id number] PEREZ/FARA
[2018-02-11 05:13] LABS: INR 1.16 (0.87-1.13)
--- NOTE | 2018-02-11 10:14 | Progress Note ---
Assessment and Plan Acute systolic heart failure -uncertain duration Echo is showing 4 chamber dilatation, LVEF 5-10% with a large apical thrombus MPI this admission showing no ischemia with findings consistent with non- ischemic cardiomyopathy LV thrombus initiated on warfarin with lovenox bridge no evidence of DVT by venous duplex low probability for PE by V/Q scan Acute renal failure Hypertension Alcohol abuse Recommendations: Medical therapy for systolic heart failure, non-ischemic cardiomyopathy and LV thrombus. Patient appears to be euvolemic now Monitor INR DC home once INR is about 2 Advise alcohol abstinence. Outpatient follow-up Subjective Date of service: 02/11/18 Principal diagnosis: CHF Interval history: Doing much better no events overnight Objective Vital Signs Temp Pulse Resp Resp BP BP Pulse Ox 02/11/18 09:46 101 H 02/11/18 08:34 99 02/11/18 05:22 98.9 F 97 H 18 127/82 97 02/11/18 00:45 98.1 F 98 H 20 108/71 97 02/10/18 22:18 95 H 113/73 02/10/18 22:00 18 18 98 02/10/18 20:33 98 02/10/18 20:14 100 H 02/10/18 19:27 97.5 F L 95 H 18 113/73 100 02/10/18 15:25 97.6 F 98 H 16 122/93 99 02/10/18 11:09 97.7 F 101 H 16 124/95 99 - Physical Examination Narrative exam: Physical examination Vitals reviewed GEN: No acute distress noted HEENT: Carotids 2+ NECK: Supple CVS: S1 and S2 heard no significant murmur or gallop noted LUNGS/CHEST: Normal auscultation ABD: Soft nontender Extremities: No edema noted normal color NEURO: Alert moves all all 4 extremities PSY: Stable General: No Apparent Distress HEENT: Positive: PERRL Neck: Positive: neck supple Neuro: Positive: Grossly Intact Abdomen: Positive: Soft Extremities: Absent: edema - Labs and Meds Coagulation 02/11/18 Range/Units 04:40 PT 15.4 H (12.2-14.9) Sec. INR 1.16 H (0.87-1.13) - Imaging and Cardiology EKG: report reviewed
[2018-02-11] MEDS: LASIX IV SCH (10:42)
[2018-02-11] MEDS: ASPIRIN PO SCH (10:42)
[2018-02-11] MEDS: FOLVITE PO SCH (10:42)
[2018-02-11] MEDS: ZESTRIL PO SCH (10:42)
[2018-02-11] MEDS: VITAMIN B-1 PO SCH (10:42)
[2018-02-11] MEDS: LOVENOX SUB-Q SCH ×2 (10:42→21:30)
[2018-02-11] MEDS: COREG PO SCH ×2 (10:42→21:30)
[2018-02-11] MEDS: SODIUM CHLORIDE FLUSH SYRINGE 10 ML IV SCH ×2 (10:43→21:31)
--- NOTE | 2018-02-11 15:27 | Progress Note ---
Assessment and Plan 47-year-old woman with a history of hypertension, CHF, diagnosed on January 12, comes to the emergency room with complaints of shortness of breath that has not improved since January 12. She was discharged on beta jose guadalupe and Lasix, he stated he is compliant with it. He admits to dyspnea on exertion, orthopnea, PND, lower extremity edema, dry cough. Also complaining of pain in his epigastric area, sharp, intermittent in nature for a few seconds, no radiation, can't identify exacerbating or relieving factors Acute systolic heart failure with EF 5-10% on 02/08/18 Chest pain, rule out ACS Severe cardiomyopathy with Large Apical Thrombus in the LV Alcohol induced cardiomyopathy Acute Respiratory failure Severe pulmonary hypertension Cardiomegaly Hypertension Acute renal insufficiency alcohol Abuse PLAN Strict input and output, daily weights, Acei, beta jose guadalupe and diuretic Started on anticoagulation with lovenox bid, with bridging coumadin therapy Extensive counselling on Avoiding ETOH Discharge once INR therapeutic at 2-3. Patient uninsured [facility] Protocol- no withdrawal at this time dvt/gi PROPHY Plan discussed with patient and family Subjective Date of service: 02/11/18 Principal diagnosis: Cardiomyopathy with large apical thrombus, chest pain Interval history: Has no more chest pain. No shortness of breath. Awaiting optimization of his INR Objective - Constitutional Vitals: Vital Signs - 12hr 02/11/18 02/11/18 02/11/18 05:22 08:34 09:46 Temperature 98.9 F Pulse Rate 97 H 101 H Respiratory 18 Rate Blood Pressure 127/82 [Right] O2 Sat by Pulse 97 99 Oximetry General appearance: Present: no acute distress, well-nourished - EENT Eyes: PERRL, EOM intact Ears: bilateral: normal - Neck Neck: supple, normal ROM - Respiratory Respiratory effort: normal Respiratory: bilateral: CTA - Cardiovascular Rhythm: regular Heart Sounds: Present: S1 & S2. Absent: gallop, rub Extremities: pulses intact, No edema, normal color, Full ROM - Gastrointestinal General gastrointestinal: Present: soft, non-tender, non-distended, normal bowel sounds - Genitourinary Male genitourinary: normal - Integumentary Integumentary: clear, warm, dry - Musculoskeletal Musculoskeletal: 1, strength equal bilaterally - Neurologic Neurologic: moves all extremities - Psychiatric Psychiatric: memory intact, appropriate mood/affect, intact judgment & insight - Labs CBC & Chem 7: 02/09/18 05:24 02/10/18 05:16 Labs: Abnormal lab results 02/11/18 Range/Units 04:40 PT 15.4 H (12.2-14.9) Sec. INR 1.16 H (0.87-1.13)
[2018-02-11] MEDS: COUMADIN PO SCH (17:02)
[2018-02-11] MEDS: MORPHINE IV PRN (17:02)
[2018-02-12 09:01] LABS: Basophils # (Auto) 0.1 K/mm3 (0.0-0.1); Basophils % (Auto) 1.3 % (0.0-1.8); Eosinophils % (Auto) 0.8 % (0.0-4.3); Hematocrit 40.5 % (35.5-45.6); Hemoglobin 13.2 gm/dl (11.8-15.2); Lymphocytes # (Auto) 2.8 K/mm3 (1.2-5.4); Lymphocytes % (Auto) 51.8 % (13.4-35.0); Mean Corpuscular HGB Conc 33 % (32-34); Mean Corpuscular Hemoglobin 31 pg (28-32); Mean Corpuscular Volume 94 fl (84-94); Monocytes # (Auto) 0.5 K/mm3 (0.0-0.8); Monocytes % (Auto) 9.5 % (0.0-7.3); Platelet Count 227 K/mm3 (140-440); Red Cell Distribution Width 15.7 % (13.2-15.2)
[2018-02-12 09:11] LABS: INR 1.22 (0.87-1.13)
[2018-02-12] MEDS: LASIX IV SCH (11:01)
[2018-02-12] MEDS: FOLVITE PO SCH (11:01)
[2018-02-12] MEDS: ZESTRIL PO SCH (11:01)
[2018-02-12] MEDS: COREG PO SCH ×2 (11:02→22:50)
[2018-02-12] MEDS: VITAMIN B-1 PO SCH (11:02)
[2018-02-12] MEDS: LOVENOX SUB-Q SCH ×2 (11:02→22:49)
[2018-02-12] MEDS: ASPIRIN PO SCH (11:02)
[2018-02-12] MEDS: SODIUM CHLORIDE FLUSH SYRINGE 10 ML IV SCH ×2 (11:03→22:50)
--- NOTE | 2018-02-12 11:04 | Progress Note ---
Assessment and Plan Acute systolic heart failure -uncertain duration Echo is showing 4 chamber dilatation, LVEF 5-10% with a large apical thrombus MPI this admission showing no ischemia with findings consistent with non- ischemic cardiomyopathy LV thrombus initiated on warfarin with lovenox bridge no evidence of DVT by venous duplex low probability for PE by V/Q scan Acute renal failure Hypertension Alcohol abuse Recommendations: Medical therapy for systolic heart failure, non-ischemic cardiomyopathy and LV thrombus. Patient appears to be euvolemic now Monitor INR DC home once INR is about 2 Advise alcohol abstinence. Outpatient follow-up Subjective Date of service: 02/12/18 Principal diagnosis: Cardiomyopathy with large apical thrombus, chest pain Interval history: Doing much better no events overnight Objective Vital Signs Temp Pulse Resp Resp BP Pulse Ox 02/12/18 10:00 105 H 02/12/18 05:34 97.7 F 98 H 20 114/88 100 02/11/18 23:52 98.0 F 98 H 20 125/84 98 02/11/18 21:30 99 H 126/68 02/11/18 20:52 97.3 F L 99 H 18 126/88 95 02/11/18 20:29 18 96 02/11/18 20:25 18 02/11/18 19:09 90 02/11/18 17:36 98.2 F 101 H 18 141/94 99 02/11/18 13:18 97.9 F 94 H 16 128/85 98 - Physical Examination Narrative exam: Physical examination Vitals reviewed GEN: No acute distress noted HEENT: Carotids 2+ NECK: Supple CVS: S1 and S2 heard no significant murmur or gallop noted LUNGS/CHEST: Normal auscultation ABD: Soft nontender Extremities: No edema noted normal color NEURO: Alert moves all all 4 extremities PSY: Stable General: No Apparent Distress HEENT: Positive: PERRL Neck: Positive: neck supple Neuro: Positive: Grossly Intact Abdomen: Positive: Soft Extremities: Absent: edema - Labs and Meds Coagulation 02/12/18 Range/Units 07:48 PT 16.1 H (12.2-14.9) Sec. INR 1.22 H (0.87-1.13) CBC 02/12/18 Range/Units 07:48 WBC 5.4 (4.5-11.0) K/mm3 RBC 4.30 (3.65-5.03) M/mm3 Hgb 13.2 (11.8-15.2) gm/dl Hct 40.5 (35.5-45.6) % Plt Count 227 (140-440) K/mm3 Lymph # 2.8 (1.2-5.4) K/mm3 [place] # 0.5 (0.0-0.8) K/mm3 Eos # 0.0 (0.0-0.4) K/mm3 Baso # 0.1 (0.0-0.1) K/mm3 - Imaging and Cardiology EKG: report reviewed
--- NOTE | 2018-02-12 14:24 | Progress Note ---
Assessment and Plan 47-year-old woman with a history of hypertension, CHF, diagnosed on January 12, comes to the emergency room with complaints of shortness of breath that has not improved since January 12. She was discharged on beta jose guadalupe and Lasix, he stated he is compliant with it. He admits to dyspnea on exertion, orthopnea, PND, lower extremity edema, dry cough. Also complaining of pain in his epigastric area, sharp, intermittent in nature for a few seconds, no radiation, can't identify exacerbating or relieving factors Acute systolic heart failure with EF 5-10% on 02/08/18 Chest pain, rule out ACS Severe cardiomyopathy with Large Apical Thrombus in the LV Alcohol induced cardiomyopathy Acute Respiratory failure Severe pulmonary hypertension Cardiomegaly Hypertension Acute renal insufficiency alcohol Abuse PLAN Strict input and output, daily weights, Acei, beta jose guadalupe and diuretic Started on anticoagulation with lovenox bid, with bridging coumadin therapy Extensive counselling on Avoiding ETOH [facility] Protocol- no withdrawal at this time dvt/gi PROPHY Plan discussed with patient and family Disposition; discharged after optimization of INR Subjective Date of service: 02/12/18 Principal diagnosis: Cardiomyopathy with large apical thrombus, chest pain Interval history: Has no more chest pain. No shortness of breath. Awaiting optimization of his INR Objective - Exam Narrative Exam: Constitutional: Well-nourished well-developed. In no distress Head: Normocephalic atraumatic Eyes: Pupils are equal round and reactive to light Nose: No enlarged turbinates, no septal deviation. Mouth: Moist mucous membranes. Neck: Supple no thyromegaly. No bruit. No JVD Heart: Regular rate and rhythm, S1-S2 abnormal. No rubs murmurs or gallop Lungs: Clear to auscultation bilaterally no rales or rhonchi Abdomen: Soft, nontender. Bowel sound are present. Extremities: No edema no cyanosis and no clubbing. Neuro: Alert oriented Oriented x3. No focal sensory or motor deficit. Skin: No rashes no hyperemic spots Psychiatry: Euthymic. Calm. - Constitutional Vitals: Vital Signs - 12hr 02/12/18 02/12/18 05:34 10:00 Temperature 97.7 F Pulse Rate 98 H 105 H Respiratory 20 Rate Blood Pressure 114/88 O2 Sat by Pulse 100 Oximetry - Labs CBC & Chem 7: 02/12/18 07:48 02/10/18 05:16 Labs: Abnormal lab results 02/12/18 02/12/18 Range/Units 07:48 07:48 RDW 15.7 H (13.2-15.2) % Lymph % (Auto) 51.8 H (13.4-35.0) % [place] % (Auto) 9.5 H (0.0-7.3) % Seg Neutrophils % 36.6 L (40.0-70.0) % PT 16.1 H (12.2-14.9) Sec. INR 1.22 H (0.87-1.13)
[2018-02-12] MEDS: COUMADIN PO SCH (16:39)
[2018-02-13 05:51] LABS: INR 1.41 (0.87-1.13)
[2018-02-13] MEDS: FOLVITE PO SCH (10:47)
[2018-02-13] MEDS: ASPIRIN PO SCH (10:47)
[2018-02-13] MEDS: COREG PO SCH ×2 (10:47→21:36)
[2018-02-13] MEDS: LASIX IV SCH (10:47)
[2018-02-13] MEDS: LOVENOX SUB-Q SCH ×2 (10:48→21:36)
[2018-02-13] MEDS: ZESTRIL PO SCH (10:48)
[2018-02-13] MEDS: VITAMIN B-1 PO SCH (10:48)
--- NOTE | 2018-02-13 12:23 | Progress Note ---
Assessment and Plan Acute systolic heart failure -uncertain duration Echo is showing 4 chamber dilatation, LVEF 5-10% with a large apical thrombus MPI this admission showing no ischemia with findings consistent with non- ischemic cardiomyopathy LV thrombus initiated on warfarin with lovenox bridge no evidence of DVT by venous duplex low probability for PE by V/Q scan Acute renal failure Hypertension Alcohol abuse Recommendations: Medical therapy for systolic heart failure, non-ischemic cardiomyopathy and LV thrombus. For discharge once target INR of 2-3 is reached. Advise alcohol abstinence. Outpatient follow-up as scheduled. Subjective Date of service: 02/13/18 Principal diagnosis: Cardiomyopathy with large apical thrombus, chest pain Interval history: No cardiac complaijts. Awaits therapeutic INR. His INR today is 1.41. No events on telemetry monitoring. Objective Vital Signs Temp Pulse Resp Resp BP Pulse Ox 02/13/18 10:00 102 H 98 02/13/18 07:47 98.5 F 102 H 18 128/98 97 02/13/18 04:51 98.1 F 97 H 20 116/83 100 02/13/18 00:09 98.4 F 99 H 20 135/90 98 02/12/18 22:50 103 H 127/87 02/12/18 21:30 18 98 02/12/18 21:29 18 02/12/18 20:52 98.7 F 103 H 20 127/87 99 02/12/18 20:03 95 H 02/12/18 16:59 98.0 F 99 H 18 118/95 100 02/12/18 13:12 98.2 F 20 - Physical Examination General: No Apparent Distress HEENT: Positive: PERRL Cardiac: Positive: Reg Rate and Rhythm Lungs: Positive: Decreased Breath Sounds Neuro: Positive: Grossly Intact Extremities: Absent: edema - Labs and Meds Coagulation 02/13/18 Range/Units 04:43 PT 18.1 H (12.2-14.9) Sec. INR 1.41 H (0.87-1.13)
--- NOTE | 2018-02-13 13:44 | Progress Note ---
Assessment and Plan 47-year-old woman with a history of hypertension, CHF, diagnosed on January 12, comes to the emergency room with complaints of shortness of breath that has not improved since January 12. She was discharged on beta jose guadalupe and Lasix, he stated he is compliant with it. He admits to dyspnea on exertion, orthopnea, PND, lower extremity edema, dry cough. Also complaining of pain in his epigastric area, sharp, intermittent in nature for a few seconds, no radiation, can't identify exacerbating or relieving factors Acute systolic heart failure with EF 5-10% on 02/08/18 Chest pain, rule out ACS Severe cardiomyopathy with Large Apical Thrombus in the LV Alcohol induced cardiomyopathy Acute Respiratory failure Severe pulmonary hypertension Cardiomegaly Hypertension Acute renal insufficiency alcohol Abuse PLAN Strict input and output, daily weights, Acei, beta jose guadalupe and diuretic Started on anticoagulation with lovenox bid, with bridging coumadin therapy Extensive counselling on Avoiding ETOH ciwa Protocol- no withdrawal at this time dvt/gi PROPHY Plan discussed with patient and family Disposition; discharged after optimization of INR to 2-3 Subjective Date of service: 02/13/18 Principal diagnosis: Cardiomyopathy with large apical thrombus, chest pain Interval history: Has no more chest pain. No shortness of breath. Awaiting optimization of his INR Objective - Exam Narrative Exam: Constitutional: Well-nourished well-developed. In no distress Head: Normocephalic atraumatic Eyes: Pupils are equal round and reactive to light Nose: No enlarged turbinates, no septal deviation. Mouth: Moist mucous membranes. Neck: Supple no thyromegaly. No bruit. No JVD Heart: Regular rate and rhythm, S1-S2 abnormal. No rubs murmurs or gallop Lungs: Clear to auscultation bilaterally no rales or rhonchi Abdomen: Soft, nontender. Bowel sound are present. Extremities: No edema no cyanosis and no clubbing. Neuro: Alert oriented Oriented x3. No focal sensory or motor deficit. Skin: No rashes no hyperemic spots Psychiatry: Euthymic. Calm. - Constitutional Vitals: Vital Signs - 12hr 02/13/18 02/13/18 02/13/18 04:51 07:47 10:00 Temperature 98.1 F 98.5 F Pulse Rate 97 H 102 H 102 H Respiratory 20 18 Rate Blood Pressure 116/83 128/98 O2 Sat by Pulse 100 97 98 Oximetry 02/13/18 11:33 Temperature 97.5 F L Pulse Rate 104 H Respiratory 16 Rate Blood Pressure 126/88 O2 Sat by Pulse 99 Oximetry - Labs CBC & Chem 7: 02/12/18 07:48 02/10/18 05:16 Labs: Abnormal lab results 02/13/18 Range/Units 04:43 PT 18.1 H (12.2-14.9) Sec. INR 1.41 H (0.87-1.13)
--- NOTE | 2018-02-13 15:21 | Vascular Lab Report ---
LOWER EXTREMITY VENOUS DUPLEX: REASON FOR EXAM: Deep venous thrombosis. COMMENTS ON THE RIGHT: All veins visualized are freely compressible without evidence of internal echogenicity. Flow is spontaneous and phasic throughout. COMMENTS ON THE LEFT: All veins visualized are freely compressible without evidence of internal echogenicity. Flow is spontaneous and phasic throughout. IMPRESSION: No evidence of acute or chronic deep venous thrombosis in either lower extremity.
[2018-02-13] MEDS: COUMADIN PO SCH (18:00)
[2018-02-13] MEDS: SODIUM CHLORIDE FLUSH SYRINGE 10 ML IV SCH ×2 (19:26→21:36)
[2018-02-14] MEDS: TYLENOL PO PRN ×2 (03:01→22:03)
[2018-02-14] MEDS: MORPHINE IV PRN (04:10)
[2018-02-14 06:08] LABS: INR 1.57 (0.87-1.13)
[2018-02-14 06:26] LABS: Albumin 3.1 g/dL (3.9-5); Calcium 8.6 mg/dL (8.4-10.2)
--- NOTE | 2018-02-14 09:39 | Progress Note ---
Assessment and Plan Acute systolic heart failure -uncertain duration Echo is showing 4 chamber dilatation, LVEF 5-10% with a large apical thrombus MPI this admission showing no ischemia with findings consistent with non- ischemic cardiomyopathy LV thrombus initiated on warfarin with lovenox bridge no evidence of DVT by venous duplex low probability for PE by V/Q scan Acute renal failure Hypertension Alcohol abuse Recommendations: Continue medical therapy for systolic heart failure, non-ischemic cardiomyopathy and LV thrombus. For discharge once target INR of 2-3 is reached. Advise alcohol abstinence. Outpatient follow-up as scheduled. Subjective Date of service: 02/14/18 Principal diagnosis: Cardiomyopathy with large apical thrombus, chest pain Interval history: No cardiac complaints. Awaits therapeutic INR. Objective Vital Signs Temp Pulse Resp Resp BP BP Pulse Ox 02/14/18 08:27 100 H 18 127/97 100 02/14/18 08:00 97.5 F L 99 H 18 127/91 100 02/14/18 04:40 18 02/14/18 04:36 98.4 F 91 H 20 135/98 99 02/14/18 04:11 20 02/14/18 04:10 20 02/14/18 03:01 20 02/14/18 00:59 98.4 F 96 H 18 111/76 98 02/13/18 23:44 95 H 111/76 98 02/13/18 23:43 98 H 111/76 99 02/13/18 21:36 87 131/89 02/13/18 20:59 18 02/13/18 20:58 90 02/13/18 20:55 18 97 02/13/18 20:23 98.1 F 87 20 131/89 99 02/13/18 19:36 98 H 131/89 99 02/13/18 16:21 98.2 F 92 H 20 104/78 98 02/13/18 11:33 97.5 F L 104 H 16 126/88 99 02/13/18 10:00 102 H 98 - Physical Examination General: No Apparent Distress HEENT: Positive: PERRL Cardiac: Positive: Reg Rate and Rhythm Lungs: Positive: Decreased Breath Sounds Neuro: Positive: Grossly Intact Extremities: Absent: edema - Labs and Meds Cardiac Enzymes 02/14/18 Range/Units 05:41 AST 34 (5-40) units/L Coagulation 02/14/18 Range/Units 05:41 PT 19.7 H (12.2-14.9) Sec. INR 1.57 H (0.87-1.13) Comprehensive Metabolic Panel 02/14/18 Range/Units 05:41 Sodium 141 (137-145) mmol/L Potassium 4.5 (3.6-5.0) mmol/L Chloride 100.9 (98-107) mmol/L Carbon Dioxide 29 (22-30) mmol/L BUN 24 H (9-20) mg/dL Creatinine 1.6 H (0.8-1.5) mg/dL Glucose 99 (75-100) mg/dL Calcium 8.6 (8.4-10.2) mg/dL AST 34 (5-40) units/L ALT 37 (7-56) units/L Alkaline Phosphatase 137 H (35-129) units/L Total Protein 6.0 L (6.3-8.2) g/dL Albumin 3.1 L (3.9-5) g/dL
[2018-02-14] MEDS: ASPIRIN PO SCH (10:35)
--- NOTE | 2018-02-14 10:35 | Cat Scan Report ---
CT scan of the without IV contrast: History: CVA. Findings: Ventricles are normal in size and midline in location. No evidence of acute ischemia, hemorrhage or mass. No extra-axial fluid collection. Normal brainstem and cerebellum. Impression: No acute intracranial abnormality. Dr. Hazel was informed of the findings at 10:20 AM on 02/14/18. 98N
--- NOTE | 2018-02-14 11:36 | Event Note ---
Date: 02/14/18 Patient noted to be on the floor with left sided weakness He was last seen eating breakfast sitting on a chair around 8:30am Stat CT obtained w/o any acute process Discussed with teleneurology and recommended CTA head/neck Patient is not a tPA candidate as he was getting therapeutic anticoagulation with lovenox/coumadin
[2018-02-14] MEDS: FOLVITE PO SCH (11:55)
[2018-02-14] MEDS: COREG PO SCH ×2 (11:55→22:04)
[2018-02-14] MEDS: LASIX IV SCH (11:55)
[2018-02-14] MEDS: ZESTRIL PO SCH (11:56)
[2018-02-14] MEDS: VITAMIN B-1 PO SCH (11:56)
[2018-02-14] MEDS: LOVENOX SUB-Q SCH ×2 (11:56→22:10)
--- NOTE | 2018-02-14 12:04 | Cat Scan Report ---
FINAL REPORT EXAM: CT ANGIO HEAD HISTORY: acute stroke TECHNIQUE: CTA of the Head and Neck with IV contrast. Coronal and sagittal reconstructed imaging provided. Carotid stenosis calculated by the NASCET method. PRIORS: None currently available. FINDINGS: Contrast bolus was timed incorrectly and contrast is only seen in the left jugular vein. HEAD: Vascular structures are not well evaluated. No acute intracranial findings. NECK: Vascular structures are not evaluated. No acute neck findings. 11.7 mm irregular solid nodule right upper lobe series 2:9. 7.3 mm irregular solid nodule right upper lobe series 2:14. 6.6 mm irregular solid nodule left upper lobe series 2:14. IMPRESSION: Contrast bolus was timed incorrectly and contrast is only seen in the left jugular vein. Vascular structures are not evaluated. No acute intracranial and neck findings. Pulmonary nodules. Further imaging with a CT thorax is recommended. February 14, 2018 at 0853 PDT: I discussed the findings over phone with Dr. Chun.
--- NOTE | 2018-02-14 12:04 | Cat Scan Report ---
FINAL REPORT EXAM: CT ANGIO NECK HISTORY: acute cva TECHNIQUE: CTA of the Head and Neck with IV contrast. Coronal and sagittal reconstructed imaging provided. Carotid stenosis calculated by the NASCET method. PRIORS: None currently available. FINDINGS: Contrast bolus was timed incorrectly and contrast is only seen in the left jugular vein. HEAD: Vascular structures are not well evaluated. No acute intracranial findings. NECK: Vascular structures are not evaluated. No acute neck findings. 11.7 mm irregular solid nodule right upper lobe series 2:9. 7.3 mm irregular solid nodule right upper lobe series 2:14. 6.6 mm irregular solid nodule left upper lobe series 2:14. IMPRESSION: Contrast bolus was timed incorrectly and contrast is only seen in the left jugular vein. Vascular structures are not evaluated. No acute intracranial and neck findings. Pulmonary nodules. Further imaging with a CT thorax is recommended. February 14, 2018 at 0853 PDT: I discussed the findings over phone with Dr. Chun.
--- NOTE | 2018-02-14 14:20 | Progress Note ---
Assessment and Plan Acute right sided CVA - Follow MRI/MRA, cont aspirin, statin - likely small vessel embolic infract Acute systolic heart failure with EF 5-10% on 02/08/18 - Started on Strict input and output, daily weights, Acei, beta jose guadalupe and diuretic - will hold BP meds for now for acute CVA Chest pain, ruled out ACS - cont aspirin, statin Severe cardiomyopathy with Large Apical Thrombus in the LV - Started on anticoagulation with lovenox bid, with bridging coumadin therapy Alcohol induced cardiomyopathy - Extensive counselling on Avoiding ETOH - civt Protocol- no withdrawal at this time Acute Respiratory failure, resolved - gina from decompensated CHF Severe pulmonary hypertension Hypertension, hold BP meds for now Acute renal insufficiency, Cr stable Hyperkalemia, repeat BMP Plan discussed with patient and family brief history 47-year-old woman with a history of hypertension, CHF, diagnosed on January 12, comes to the emergency room with complaints of shortness of breath that has not improved since January 12. She was discharged on beta jose guadalupe and Lasix, he stated he was compliant with it. He presented to ER with c/o dyspnea on exertion, orthopnea, PND, lower extremity edema, dry cough. His 2d echo showed Ef of 5-10% with apical thrombus and started on AC with coumadin/lovenox. Today am he developed acute leftsided weakness, CT head unremarkable. MRI/MRA brain pending Physical exam Constitutional: Well-nourished well-developed. Head: Normocephalic atraumatic Eyes: Pupils are equal round and reactive to light Nose: No enlarged turbinates, no septal deviation. Mouth: Moist mucous membranes. Neck: Supple no thyromegaly. No bruit. No JVD Heart: Regular rate and rhythm, S1-S2 abnormal. No rubs murmurs or gallop Lungs: Clear to auscultation bilaterally no rales or rhonchi Abdomen: Soft, nontender. Bowel sound are present. Extremities: No edema no cyanosis and no clubbing. Neuro: left sided weakness Skin: No rashes no hyperemic spots Psychiatry: Euthymic. Calm. Subjective Date of service: 02/14/18 Principal diagnosis: Cardiomyopathy with large apical thrombus, chest pain Interval history: Found on the floor this am with leftsided weakness Got MRI, able to speak, c/o left sided weakness. Objective - Constitutional Vitals: Vital Signs - 12hr 02/14/18 02/14/18 02/14/18 03:01 04:10 04:11 Temperature Pulse Rate Respiratory 20 20 20 Rate Blood Pressure Blood Pressure [Right] O2 Sat by Pulse Oximetry 02/14/18 02/14/18 02/14/18 04:36 04:40 08:00 Temperature 98.4 F 97.5 F L Pulse Rate 91 H 99 H Respiratory 20 18 18 Rate Blood Pressure 135/98 Blood Pressure 127/91 [Right] O2 Sat by Pulse 99 100 Oximetry 02/14/18 08:27 Temperature Pulse Rate 100 H Respiratory 18 Rate Blood Pressure 127/97 Blood Pressure [Right] O2 Sat by Pulse 100 Oximetry - Labs CBC & Chem 7: 02/15/18 03:55 02/15/18 03:55 Labs: Abnormal lab results 02/14/18 02/14/18 02/14/18 Range/Units 05:41 05:41 10:07 PT 19.7 H (12.2-14.9) Sec. INR 1.57 H (0.87-1.13) BUN 24 H (9-20) mg/dL Creatinine 1.6 H (0.8-1.5) mg/dL POC Glucose 162 H (70-105) Alkaline Phosphatase 137 H (35-129) units/L Total Protein 6.0 L (6.3-8.2) g/dL Albumin 3.1 L (3.9-5) g/dL
[2018-02-14] MEDS ORDERED: ZOFRAN IV PRN (14:44)
[2018-02-14] MEDS ORDERED: TYLENOL PO PRN (14:44)
[2018-02-14] MEDS ORDERED: DULCOLAX PR PRN (14:44)
[2018-02-14] MEDS ORDERED: PHENERGAN PR PRN (14:44)
[2018-02-14] MEDS ORDERED: MILK OF MAGNESIA PO PRN (14:44)
[2018-02-14] MEDS ORDERED: SODIUM CHLORIDE FLUSH SYRINGE 10 ML IV PRN (14:44)
[2018-02-14] MEDS ORDERED: REGLAN PO PRN (14:44)
[2018-02-14] MEDS: SODIUM CHLORIDE FLUSH SYRINGE 10 ML IV SCH ×2 (15:19→22:11)
--- NOTE | 2018-02-14 15:27 | Magnetic Resonance Report ---
MRI BRAIN WITHOUT CONTRAST: 02/14/18 CLINICAL: CVA TECHNIQUE: Axial diffusion, T1, T2, gradient echo T2*, coronal and axial FLAIR and sagittal T1 sequences on a 1.5 Kayleen magnet. FINDINGS: Normal ventricles and sulci. Multifocal restricted diffusion involving right posterior parietal white matter and cortex and a single focus of restricted diffusion involving the right occipital cortex. No other restricted diffusion. No mass or mass effect. No hemorrhage, edema or extra-axial collection. No cerebral micro-bleeds. No evidence of periventricular white matter microangiopathy. Normal pituitary and optic chiasm. The brainstem and cerebellum are normal. Intact vascular flow voids. Mild left maxillary sinus mucoperiosteal thickening. The sinuses are otherwise clear. The orbits, and soft tissues are normal. Normal calvarium and skull base. IMPRESSION: Multifocal acute/subacute non-hemorrhagic right parietal lobe and occipital lobe cortical infarcts and right parietal lobe white matter infarcts. The pattern is typical of embolic infarcts. 2. No significant mass effect and no hemorrhage.
--- NOTE | 2018-02-14 15:53 | Magnetic Resonance Report ---
MRA HEAD WITHOUT CONTRAST: 02/14/18 CLINICAL: CVA. TECHNIQUE: Axial 3-D [id number] MR angiography of the [place] with review of axial source images. FINDINGS: Intact [place] with no aneurysm, high-grade stenosis or occlusion. The posterior communicating arteries are well-demonstrated. The anterior communicating artery is not demonstrated. The distal ICAs are intact. Symmetric blood flow in the anterior, middle and posterior cerebral arteries. Normal basilar and vertebral arteries. IMPRESSION: Normal study.
--- NOTE | 2018-02-14 16:01 | Magnetic Resonance Report ---
MRA NECK WITHOUT CONTRAST: 02/14/18 CLINICAL: Stroke. COMPARISON:None. TECHNIQUE: Axial 3-D [id number] MR angiography with review of axial source images on a 1.5 Kayleen magnet. FINDINGS: The bilateral common carotid arteries are intact. However, the ICAs are tortuous at the skull base. The right ICA is otherwise intact. Plaque at the origin of the proximal left ICA with less than 50% stenosis. No significant stenoses and no occlusions. Dominant left vertebral artery. IMPRESSION: Tortuous internal carotid arteries with no significant stenoses. A less than 50% stenosis of the left ICA at its origin.
[2018-02-14] MEDS: COUMADIN PO SCH (17:34)
[2018-02-15 04:40] LABS: Basophils # (Auto) 0.1 K/mm3 (0.0-0.1); Basophils % (Auto) 1.2 % (0.0-1.8); Eosinophils % (Auto) 0.3 % (0.0-4.3); Hematocrit 41.5 % (35.5-45.6); Hemoglobin 13.3 gm/dl (11.8-15.2); Lymphocytes % (Auto) 42.8 % (13.4-35.0); Mean Corpuscular HGB Conc 32 % (32-34); Mean Corpuscular Hemoglobin 31 pg (28-32); Mean Corpuscular Volume 95 fl (84-94); Monocytes # (Auto) 0.7 K/mm3 (0.0-0.8); Monocytes % (Auto) 9.4 % (0.0-7.3); Platelet Count 208 K/mm3 (140-440); Red Blood Count 4.38 M/mm3 (3.65-5.03); Red Cell Distribution Width 15.1 % (13.2-15.2)
[2018-02-15 04:53] LABS: INR 1.7 (0.87-1.13)
[2018-02-15 05:00] LABS: BUN/Creatinine Ratio 15; Blood Urea Nitrogen 21 mg/dL (9-20); Calcium 9.4 mg/dL (8.4-10.2); Chol/HDL Ratio 4.71 %; HDL Cholesterol 35 mg/dL (40-59); Hemolysis Index 5; LDL Cholesterol,Direct 128 mg/dL (50-130)
[2018-02-15 09:55] LABS: BUN/Creatinine Ratio 15; Blood Urea Nitrogen 21 mg/dL (9-20); Calcium 9.3 mg/dL (8.4-10.2); Hemolysis Index 1
[2018-02-15 10:03] LABS: Basophils % (Auto) 0.3 % (0.0-1.8); Eosinophils % (Auto) 0.3 % (0.0-4.3); Hemoglobin 13.9 gm/dl (11.8-15.2); Lymphocytes # (Auto) 2.8 K/mm3 (1.2-5.4); Lymphocytes % (Auto) 41.2 % (13.4-35.0); Mean Corpuscular HGB Conc 32 % (32-34); Mean Corpuscular Hemoglobin 31 pg (28-32); Mean Corpuscular Volume 95 fl (84-94); Monocytes # (Auto) 0.6 K/mm3 (0.0-0.8); Monocytes % (Auto) 8.2 % (0.0-7.3); Platelet Count 233 K/mm3 (140-440); Red Blood Count 4.52 M/mm3 (3.65-5.03); Red Cell Distribution Width 15.5 % (13.2-15.2)
[2018-02-15] MEDS: ASPIRIN PO SCH (10:24)
[2018-02-15] MEDS: VITAMIN B-1 PO SCH (10:25)
[2018-02-15] MEDS: FOLVITE PO SCH (10:25)
[2018-02-15] MEDS: ZESTRIL PO SCH (10:25)
[2018-02-15] MEDS: LASIX IV SCH (10:25)
[2018-02-15] MEDS: COREG PO SCH ×2 (10:25→22:25)
[2018-02-15] MEDS: SODIUM CHLORIDE FLUSH SYRINGE 10 ML IV SCH ×2 (10:27→22:27)
--- NOTE | 2018-02-15 10:33 | Progress Note ---
Assessment and Plan Acute CVA Acute systolic heart failure -uncertain duration Echo is showing 4 chamber dilatation, LVEF 5-10% with a large apical thrombus MPI this admission showing no ischemia with findings consistent with non- ischemic cardiomyopathy LV thrombus initiated on warfarin with lovenox bridge no evidence of DVT by venous duplex low probability for PE by V/Q scan Acute renal failure Hypertension Alcohol abuse Recommend: Continue medical therapy for systolic heart failure, non-ischemic cardiomyopathy and LV thrombus. Subjective Date of service: 02/15/18 Principal diagnosis: Cardiomyopathy with large apical thrombus, chest pain Interval history: Patient transferred to CCU following an acute CVA. Objective Vital Signs Temp Pulse Resp BP Pulse Ox 02/15/18 10:25 104 H 120/84 02/15/18 08:45 95 H 125/98 98 02/15/18 08:30 126/106 99 02/15/18 08:15 99 H 22 128/96 98 02/15/18 08:00 98.0 F 99 H 21 131/99 97 02/15/18 07:45 96 H 23 139/96 99 02/15/18 07:30 98 H 21 131/105 98 02/15/18 07:15 92 H 25 H 127/89 98 02/15/18 07:00 95 H 24 138/97 98 02/15/18 06:45 91 H 22 133/95 99 02/15/18 06:30 99 H 16 134/101 100 02/15/18 06:15 99 H 21 135/101 96 02/15/18 06:00 92 H 22 130/95 98 02/15/18 05:45 92 H 23 126/91 100 02/15/18 05:30 95 H 22 130/95 98 02/15/18 05:15 99 H 13 133/96 100 02/15/18 05:00 92 H 16 124/86 99 02/15/18 04:45 95 H 19 128/94 96 02/15/18 04:30 94 H 20 124/91 99 02/15/18 04:15 98 H 23 132/94 98 02/15/18 04:00 98.7 F 96 H 22 119/86 98 02/15/18 03:45 95 H 23 129/96 99 02/15/18 03:30 89 24 117/81 97 02/15/18 03:15 89 22 119/85 97 02/15/18 03:00 90 22 123/86 97 02/15/18 02:45 90 24 120/82 97 02/15/18 02:30 89 23 118/88 97 02/15/18 02:15 95 H 17 135/96 98 02/15/18 02:00 93 H 24 130/95 98 02/15/18 01:45 100 H 20 124/99 99 02/15/18 01:30 93 H 22 113/83 97 02/15/18 01:15 96 H 25 H 120/93 96 02/15/18 01:00 90 22 119/82 97 02/15/18 00:45 93 H 21 114/81 98 02/15/18 00:30 93 H 20 118/82 100 02/15/18 00:15 92 H 23 97/66 97 02/15/18 00:00 98.3 F 94 H 23 99/67 97 02/14/18 23:45 95 H 22 107/75 93 02/14/18 23:30 94 H 23 106/76 98 02/14/18 23:15 96 H 23 117/83 95 02/14/18 23:00 107 H 20 141/104 97 02/14/18 22:45 105 H 23 133/105 98 02/14/18 22:35 105 H 26 H 135/99 97 02/14/18 22:30 104 H 24 135/99 100 02/14/18 22:15 108 H 26 H 128/99 98 02/14/18 22:04 107 H 121/87 02/14/18 22:00 108 H 24 137/89 98 02/14/18 21:45 106 H 17 121/87 99 02/14/18 21:30 98 H 21 128/92 95 02/14/18 21:15 101 H 26 H 139/94 97 02/14/18 21:00 110 H 26 H 142/105 97 02/14/18 20:45 115 H 13 130/106 99 02/14/18 20:30 106 H 24 142/104 98 02/14/18 20:15 109 H 24 130/106 98 02/14/18 20:00 107 H 19 145/100 99 02/14/18 19:45 107 H 25 H 140/104 99 02/14/18 19:30 108 H 30 H 146/103 98 02/14/18 19:15 107 H 17 134/107 99 02/14/18 19:00 111 H 21 152/109 97 02/14/18 18:45 107 H 26 H 145/102 98 02/14/18 18:30 106 H 25 H 141/100 99 02/14/18 18:15 111 H 21 152/117 99 02/14/18 18:00 108 H 14 149/103 100 02/14/18 17:45 109 H 25 H 146/110 99 02/14/18 17:31 112 H 20 142/104 98 02/14/18 17:15 109 H 24 142/114 97 02/14/18 17:00 107 H 16 145/108 99 02/14/18 16:45 104 H 20 143/105 98 02/14/18 16:30 107 H 24 140/105 98 02/14/18 16:15 108 H 20 141/104 97 02/14/18 16:00 106 H 22 145/110 98 02/14/18 15:55 97.6 F 02/14/18 15:45 105 H 12 140/103 97 02/14/18 15:30 107 H 14 134/102 97 02/14/18 15:16 104 H 13 137/101 97 02/14/18 15:00 106 H 17 155/105 100 02/14/18 14:46 108 H 11 L 155/105 98 02/14/18 14:38 97 - Physical Examination General: No Apparent Distress HEENT: Positive: PERRL Cardiac: Positive: Reg Rate and Rhythm Neuro: Positive: Grossly Intact Extremities: Absent: edema - Labs and Meds Coagulation 02/15/18 Range/Units 03:55 PT 21.0 H (12.2-14.9) Sec. INR 1.70 H (0.87-1.13) Lipids 02/15/18 Range/Units 03:55 Triglycerides 107 (2-149) mg/dL Cholesterol 165 (50-199) mg/dL HDL Cholesterol 35 L (40-59) mg/dL Cholesterol/HDL Ratio 4.71 % CBC 02/15/18 02/15/18 Range/Units 03:55 08:52 WBC 7.0 6.9 (4.5-11.0) K/mm3 RBC 4.38 4.52 (3.65-5.03) M/mm3 Hgb 13.3 13.9 (11.8-15.2) gm/dl Hct 41.5 43.0 (35.5-45.6) % Plt Count 208 233 (140-440) K/mm3 Lymph # 3.0 2.8 (1.2-5.4) K/mm3 [place] # 0.7 0.6 (0.0-0.8) K/mm3 Eos # 0.0 0.0 (0.0-0.4) K/mm3 Baso # 0.1 0.0 (0.0-0.1) K/mm3 Comprehensive Metabolic Panel 02/15/18 02/15/18 Range/Units 03:55 08:52 Sodium 140 139 (137-145) mmol/L Potassium 5.6 H D 5.0 (3.6-5.0) mmol/L Chloride 99.7 100.4 (98-107) mmol/L Carbon Dioxide 30 27 (22-30) mmol/L BUN 21 H 21 H (9-20) mg/dL Creatinine 1.4 1.4 (0.8-1.5) mg/dL Glucose 74 L 98 (75-100) mg/dL Calcium 9.4 9.3 (8.4-10.2) mg/dL
[2018-02-15] MEDS: LOVENOX SUB-Q SCH ×2 (10:37→22:27)
--- NOTE | 2018-02-15 10:56 | Progress Note ---
Assessment and Plan Acute b/l CVA - multifocal acute/subacute non-hemorrhagic CVA, cont aspirin, statin - likely small vessel embolic infract - neurology following Acute systolic heart failure with EF 5-10% on 02/08/18 - Started on Strict input and output, daily weights, Acei, beta jose guadalupe and diuretic Chest pain, ruled out ACS - cont aspirin, statin Severe cardiomyopathy with Large Apical Thrombus in the LV - Started on anticoagulation with lovenox bid, with bridging coumadin therapy Alcohol induced cardiomyopathy - Extensive counselling on Avoiding ETOH - ciin Protocol- no withdrawal at this time Acute Respiratory failure, resolved - gina from decompensation CHF Severe pulmonary hypertension Hypertension, hold BP meds for now Acute renal insufficiency, Cr stable Hyperkalemia, resolved Plan discussed with patient and family brief history 47-year-old woman with a history of hypertension, CHF, diagnosed on January 12, comes to the emergency room with complaints of shortness of breath that has not improved since January 12. She was discharged on beta jose guadalupe and Lasix, he stated he was compliant with it. He presented to ER with c/o dyspnea on exertion, orthopnea, PND, lower extremity edema, dry cough. His 2d echo showed Ef of 5-10% with apical thrombus and started on AC with coumadin/lovenox. am he developed acute left sided weakness, CT head unremarkable. MRI/MRA showed multifocal acute/subacute non-hemorrhagic right parietal lobe and occipital lobe cortical infract. Radiological data: MRI brain: IMPRESSION: Multifocal acute/subacute non-hemorrhagic right parietal lobe and occipital lobe cortical infarcts and right parietal lobe white matter infarcts. The pattern is typical of embolic infarcts. 2. No significant mass effect and no hemorrhage. Physical exam Constitutional: Well-nourished well-developed. Head: Normocephalic atraumatic Eyes: Pupils are equal round and reactive to light Nose: No enlarged turbinates, no septal deviation. Mouth: Moist mucous membranes. Neck: Supple no thyromegaly. No bruit. No JVD Heart: Regular rate and rhythm, S1-S2 abnormal. No rubs murmurs or gallop Lungs: Clear to auscultation bilaterally no rales or rhonchi Abdomen: Soft, nontender. Bowel sound are present. Extremities: No edema no cyanosis and no clubbing. Neuro: mild left sided weakness Skin: No rashes no hyperemic spots Psychiatry: Euthymic. Calm. Subjective Date of service: 02/15/18 Principal diagnosis: Cardiomyopathy with large apical thrombus, chest pain Interval history: Pt seen and examined tolerating diet, able to apeak Able to NICOLE and LL extremity this am. Denies any chest pain, updated family at bedside Objective - Constitutional Vitals: Vital Signs - 12hr 02/14/18 02/14/18 02/14/18 23:00 23:15 23:30 Temperature Pulse Rate 107 H 96 H 94 H Respiratory 20 23 23 Rate Blood Pressure 141/104 117/83 106/76 O2 Sat by Pulse 97 95 98 Oximetry 02/14/18 02/15/18 02/15/18 23:45 00:00 00:15 Temperature 98.3 F Pulse Rate 95 H 94 H 92 H Respiratory 22 23 23 Rate Blood Pressure 107/75 99/67 97/66 O2 Sat by Pulse 93 97 97 Oximetry 02/15/18 02/15/18 02/15/18 00:30 00:45 01:00 Temperature Pulse Rate 93 H 93 H 90 Respiratory 20 21 22 Rate Blood Pressure 118/82 114/81 119/82 O2 Sat by Pulse 100 98 97 Oximetry 02/15/18 02/15/18 02/15/18 01:15 01:30 01:45 Temperature Pulse Rate 96 H 93 H 100 H Respiratory 25 H 22 20 Rate Blood Pressure 120/93 113/83 124/99 O2 Sat by Pulse 96 97 99 Oximetry 02/15/18 02/15/18 02/15/18 02:00 02:15 02:30 Temperature Pulse Rate 93 H 95 H 89 Respiratory 24 17 23 Rate Blood Pressure 130/95 135/96 118/88 O2 Sat by Pulse 98 98 97 Oximetry 02/15/18 02/15/18 02/15/18 02:45 03:00 03:15 Temperature Pulse Rate 90 90 89 Respiratory 24 22 22 Rate Blood Pressure 120/82 123/86 119/85 O2 Sat by Pulse 97 97 97 Oximetry 02/15/18 02/15/18 02/15/18 03:30 03:45 04:00 Temperature 98.7 F Pulse Rate 89 95 H 96 H Respiratory 24 23 22 Rate Blood Pressure 117/81 129/96 119/86 O2 Sat by Pulse 97 99 98 Oximetry 02/15/18 02/15/18 02/15/18 04:15 04:30 04:45 Temperature Pulse Rate 98 H 94 H 95 H Respiratory 23 20 19 Rate Blood Pressure 132/94 124/91 128/94 O2 Sat by Pulse 98 99 96 Oximetry 02/15/18 02/15/18 02/15/18 05:00 05:15 05:30 Temperature Pulse Rate 92 H 99 H 95 H Respiratory 16 13 22 Rate Blood Pressure 124/86 133/96 130/95 O2 Sat by Pulse 99 100 98 Oximetry 02/15/18 02/15/18 02/15/18 05:45 06:00 06:15 Temperature Pulse Rate 92 H 92 H 99 H Respiratory 23 22 21 Rate Blood Pressure 126/91 130/95 135/101 O2 Sat by Pulse 100 98 96 Oximetry 02/15/18 02/15/18 02/15/18 06:30 06:45 07:00 Temperature Pulse Rate 99 H 91 H 95 H Respiratory 16 22 24 Rate Blood Pressure 134/101 133/95 138/97 O2 Sat by Pulse 100 99 98 Oximetry 02/15/18 02/15/18 02/15/18 07:15 07:30 07:45 Temperature Pulse Rate 92 H 98 H 96 H Respiratory 25 H 21 23 Rate Blood Pressure 127/89 131/105 139/96 O2 Sat by Pulse 98 98 99 Oximetry 02/15/18 02/15/18 02/15/18 08:00 08:15 08:30 Temperature 98.0 F Pulse Rate 99 H 99 H Respiratory 21 22 Rate Blood Pressure 131/99 128/96 126/106 O2 Sat by Pulse 97 98 99 Oximetry 02/15/18 02/15/18 08:45 10:25 Temperature Pulse Rate 95 H 104 H Respiratory Rate Blood Pressure 125/98 120/84 O2 Sat by Pulse 98 Oximetry - Labs CBC & Chem 7: 02/15/18 08:52 02/15/18 08:52 Labs: Abnormal lab results 02/15/18 02/15/18 02/15/18 Range/Units 03:55 03:55 03:55 MCV 95 H (84-94) fl RDW (13.2-15.2) % Lymph % (Auto) 42.8 H (13.4-35.0) % Wy[place] % (Auto) 9.4 H (0.0-7.3) % PT 21.0 H (12.2-14.9) Sec. INR 1.70 H (0.87-1.13) Potassium 5.6 H D (3.6-5.0) mmol/L BUN 21 H (9-20) mg/dL Glucose 74 L (75-100) mg/dL HDL Cholesterol 35 L (40-59) mg/dL 02/15/18 02/15/18 Range/Units 08:52 08:52 MCV 95 H (84-94) fl RDW 15.5 H (13.2-15.2) % Lymph % (Auto) 41.2 H (13.4-35.0) % [place] % (Auto) 8.2 H (0.0-7.3) % PT (12.2-14.9) Sec. INR (0.87-1.13) Potassium (3.6-5.0) mmol/L BUN 21 H (9-20) mg/dL Glucose (75-100) mg/dL HDL Cholesterol (40-59) mg/dL
[2018-02-15] MEDS: COUMADIN PO SCH (17:10)
--- NOTE | 2018-02-15 17:28 | Consultation ---
History of Present Illness Consult date: 02/15/18 Requesting physician: ARLENE SMITH Reason for Consult: strokes Chief complaint: strokes History of present illness: This 47-year-old right-handed male states he came to the hospital 1 week ago for shortness of breath and was put on medications and returned yesterday for shortness of breath and weakness on his left side particularly his left hand with impaired balance. He had no numbness or tingling or headache or difficulty swallowing or visual change or speech change. He is better today. He drinks a bottle of vodka in a day 3 times a week and a bit more on Fridays. He does not smoke except marijuana once a week. MRI shows embolic strokes right parietal and occipital cortically and right parietal white matter despite full dose Lovenox. He is still building up warfarin. 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 denies: smoking, prescription drug abuse, IV drug use (marijuana once a week) Family history: no significant family history, diabetes (both sides), hypertension (both sides), stroke (father, all grandparents X 4), other ( brother had epilepsy in past) Medications and Allergies Allergies Allergy/AdvReac Type Severity Reaction Status Date / Time No Known Allergies Allergy Unverified 01/12/18 08:04 Home Medications Medication Instructions Recorded Confirmed Last Taken Type Furosemide [Lasix] 20 mg PO QDAY #14 tablet 01/12/18 02/07/18 Unknown Rx Metoprolol [Lopressor] 25 mg PO BID #30 tablet 01/12/18 02/07/18 Unknown Rx Active Meds: Active Medications Acetaminophen (Tylenol) 650 mg PO Q4H PRN PRN Reason: Pain, Mild (1-3) Aspirin (Aspirin) 325 mg PO QDAY [facility] Last Admin: 02/15/18 10:24 Dose: 325 mg Atorvastatin Calcium (Lipitor) 40 mg PO QHS [facility] Bisacodyl (Dulcolax) 10 mg AL QDAY PRN PRN Reason: Constipation Carvedilol (Coreg) 6.25 mg PO BID [facility] Last Admin: 02/15/18 10:25 Dose: 6.25 mg Enoxaparin Sodium (Lovenox) 90 mg 1 mg/kg (90 mg) SUB-Q Q12HR [facility] Last Admin: 02/15/18 10:37 Dose: 90 mg Folic Acid (Folvite) 1 mg PO QDAY [facility] Last Admin: 02/15/18 10:25 Dose: 1 mg Furosemide (Lasix) 40 mg IV DAILY [facility] Last Admin: 02/15/18 10:25 Dose: 40 mg Hydralazine HCl (Apresoline) 10 mg IV Q4HR PRN PRN Reason: Hypertension Lisinopril (Zestril) 5 mg PO QDAY [facility] Last Admin: 02/15/18 10:25 Dose: 5 mg Lorazepam (Ativan) 2 mg IV Q1HR PRN PRN Reason: CIWA-Ar 8-15 Lorazepam (Ativan) 4 mg IV Q1HR PRN PRN Reason: CIWA-Ar 16-25 Magnesium Hydroxide (Milk Of Magnesia) 30 ml PO Q4H PRN PRN Reason: Constipation Metoclopramide HCl (Reglan) 10 mg PO Q6H PRN PRN Reason: Nausea And Vomiting Morphine Sulfate (Morphine) 2 mg IV Q4H PRN PRN Reason: Pain, Moderate (4-6) Last Admin: 02/14/18 04:10 Dose: 2 mg Ondansetron HCl (Zofran) 4 mg IV Q8H PRN PRN Reason: Nausea And Vomiting Promethazine HCl (Phenergan) 25 mg AL Q6H PRN PRN Reason: Nausea And Vomiting Sodium Chloride (Sodium Chloride Flush Syringe 10 Ml) 10 ml IV BID [facility] Last Admin: 02/15/18 10:27 Dose: 10 ml Sodium Chloride (Sodium Chloride Flush Syringe 10 Ml) 10 ml IV PRN PRN PRN Reason: LINE FLUSH Thiamine HCl (Vitamin B-1) 100 mg PO QDAY [facility] Last Admin: 02/15/18 10:25 Dose: 100 mg Warfarin Sodium (Coumadin Pharmacy To Dose) 1 each PO PKCONSULT [facility] Warfarin Sodium (Coumadin) 7.5 mg PO DAILY@1700 ROBERT; Protocol Last Admin: 02/15/18 17:10 Dose: 7.5 mg Review of Systems All systems: negative (no headaches or dizziness but loud snoring, no pauses, naps for 30 min X 1, not dozing, not sleepy driving. Ok memory.) Physical Examination - Vital Signs Vital Signs: Vital Signs Temp Pulse Resp BP Pulse Ox 98 F 123 H 22 150/112 99 02/07/18 18:21 02/07/18 18:21 02/07/18 18:21 02/07/18 18:21 02/07/18 18:21 - Physical Exam Narrative exam: General appearance: well developed mid 40's male in [facility], seen with his family. HEENT: atraumatic, normocephalic; no bruits, 2+ Bertha without soreness, sclerae nonicteric. Oropharynx pink and moist. Neck: supple, no bruits. Heart: no murmur or extra sounds. Extremities: no clubbing, cyanosis or edema. 2+ dorsalis pedis pulses bilaterally. Neurologic Exam: Mental Status: Awake, alert, oriented to beginning of February,, [facility], (one day off), speech is clear, names President but not Associate Curator, serial 7's poor and gives 5+7=15, spells WORLD backwards DOLRD, abstracts well, has right-left confusion, names pen and ballpoint of pen, gets 1 of 3 objects at 3 minutes, Cranial Nerves: segal full, no papilledema, SVPs present, PERRLA, EOMs full without nystagmus or diplopia, facial sensation intact to light touch but decreased to pinprick left side, enlarged left palpebral fissure, Daly is midline, palate rises symmetrically to phonation and gags are positive, shoulder shrug is 5 right and 4+ left, tongue protrudes midline. Cerebellar: finger to nose and heel to gibson intact but tandem is slightly wobbly despite support but not widebased. Sensory: intact to light touch, pinprick decreased left side, intact vibrations. Double simultaneous stimulation is intact. Motor Exam Upper Extremities: left drift and pronation, Crissy very decreased left. Radio Tower Technician is 4+ left, tone is normal. No atrophy or fasciculations are noted visually. Motor Exam Lower Extremities: walks on heels and toes with support with slightly poor heel walk on the left, not safe to hop. Crissy intact. Tone is normal. No atrophy or fasciculations are noted visually. Reflexes: Palmomental and snout are negative but jaw jerk is slightly positive. Triceps are trace right and 2 left, biceps are 0 right becoming trace with reinforcement and 2+ left and brachioradialis are trace right and 2 left. Trotter's is negative bilaterally. Knee jerks are 2 and ankle jerks are 2+ bilaterally without clonus. Toes are downgoing bilaterally to Babinski testing. - Assessment Assessment Interval: Baseline - Level of Consciousness 1a. Level of Consciousness: alert - LOC Questions 1b. LOC Questions: answers correctly - LOC Command 1c. LOC Commands: performs tasks correctly - Best Gaze 2. Best Gaze: normal - Visual 3. Visual: no visual loss - Facial Palsy 4. Facial Palsy: complete paralysis - Motor Arm 5b. Motor Arm Right: no drift - Motor Leg 6a. Motor Leg Left: no movement - Limb Ataxia 7. Limb Ataxia: present 1 limb - Sensory 8. Sensory: normal - Best Language 9. Best Language: no aphasia - Dysarthria 10. Dysarthria: severe dysarthria - Extinction and Inattention 11. Extinction/Inattention: profound inattention Results - Laboratory Findings CBC and BMP: 02/15/18 08:52 02/16/18 06:07 Abnormal Lab Findings: Abnormal Labs 02/07/18 02/07/18 02/07/18 18:33 18:33 20:39 MCV 95 H RDW 15.3 H Lymph % (Auto) 39.6 H [place] % (Auto) 10.5 H Cambria # 0.9 H Seg Neutrophils % PT INR D-Dimer Potassium BUN 21 H Creatinine 1.7 H Glucose 68 L POC Glucose Alkaline Phosphatase Total Creatine Kinase NT-Pro-B Natriuret Pep 5880 H Total Protein Albumin HDL Cholesterol 02/08/18 02/08/18 02/08/18 00:22 01:27 06:10 MCV 95 H RDW 15.4 H Lymph % (Auto) 40.9 H [place] % (Auto) 9.8 H [place] # Seg Neutrophils % PT INR D-Dimer 1197.91 H Potassium BUN Creatinine Glucose POC Glucose Alkaline Phosphatase Total Creatine Kinase 478 H NT-Pro-B Natriuret Pep Total Protein Albumin HDL Cholesterol 02/08/18 02/08/18 02/09/18 06:10 06:10 05:24 MCV 95 H RDW Lymph % (Auto) [place] % (Auto) [place] # Seg Neutrophils % PT INR D-Dimer Potassium BUN 22 H Creatinine 1.6 H Glucose POC Glucose Alkaline Phosphatase Total Creatine Kinase 389 H NT-Pro-B Natriuret Pep Total Protein Albumin HDL Cholesterol 02/09/18 02/10/18 02/10/18 05:24 05:16 05:16 MCV RDW Lymph % (Auto) [place] % (Auto) [place] # Seg Neutrophils % PT 16.1 H INR 1.22 H D-Dimer Potassium BUN 26 H 27 H Creatinine 1.7 H 1.7 H Glucose POC Glucose Alkaline Phosphatase Total Creatine Kinase NT-Pro-B Natriuret Pep Total Protein Albumin HDL Cholesterol 02/11/18 02/12/18 02/12/18 04:40 07:48 07:48 MCV RDW 15.7 H Lymph % (Auto) 51.8 H [place] % (Auto) 9.5 H [place] # Seg Neutrophils % 36.6 L PT 15.4 H 16.1 H INR 1.16 H 1.22 H D-Dimer Potassium BUN Creatinine Glucose POC Glucose Alkaline Phosphatase Total Creatine Kinase NT-Pro-B Natriuret Pep Total Protein Albumin HDL Cholesterol 02/13/18 02/14/18 02/14/18 04:43 05:41 05:41 MCV RDW Lymph % (Auto) [place] % (Auto) [place] # Seg Neutrophils % PT 18.1 H 19.7 H INR 1.41 H 1.57 H D-Dimer Potassium BUN 24 H Creatinine 1.6 H Glucose POC Glucose Alkaline Phosphatase 137 H Total Creatine Kinase NT-Pro-B Natriuret Pep Total Protein 6.0 L Albumin 3.1 L HDL Cholesterol 02/14/18 02/15/18 02/15/18 10:07 03:55 03:55 MCV 95 H RDW Lymph % (Auto) 42.8 H [place] % (Auto) 9.4 H [place] # Seg Neutrophils % PT 21.0 H INR 1.70 H D-Dimer Potassium BUN Creatinine Glucose POC Glucose 162 H Alkaline Phosphatase Total Creatine Kinase NT-Pro-B Natriuret Pep Total Protein Albumin HDL Cholesterol 02/15/18 02/15/18 02/15/18 03:55 08:52 08:52 MCV 95 H RDW 15.5 H Lymph % (Auto) 41.2 H [place] % (Auto) 8.2 H [place] # Seg Neutrophils % PT INR D-Dimer Potassium 5.6 H D BUN 21 H 21 H Creatinine Glucose 74 L POC Glucose Alkaline Phosphatase Total Creatine Kinase NT-Pro-B Natriuret Pep Total Protein Albumin HDL Cholesterol 35 L Assessment and Plan Impression: Embolic strokes Plan: Continue anticoagulation since strokes are small. Explained concept of post stroke edema to him and told him to let us know if he feels any changes such as headache or nausea or worsening of left-sided weakness. Told him rarely one might need to intervene with intravenous diuretic or hypertonic saline. Told him he needs to reduce ETOH since more than 2 drinks in 24 hours increases risk for strokes, as does smoking marijuana. 45 min critical care time spent. Thank you for an interesting consultation on this mid 40's white male. Signing off, call for any questions.
[2018-02-16 06:39] LABS: INR 1.95 (0.87-1.13)
[2018-02-16 06:57] LABS: BUN/Creatinine Ratio 16; Blood Urea Nitrogen 22 mg/dL (9-20); Calcium 8.8 mg/dL (8.4-10.2); Hemolysis Index 56
--- NOTE | 2018-02-16 09:33 | Progress Note ---
<PEDRO PAL - Last Filed: 02/16/18 09:32> Assessment and Plan Acute CVA Acute systolic heart failure -uncertain duration Echo is showing 4 chamber dilatation, LVEF 5-10% with a large apical thrombus MPI this admission showing no ischemia with findings consistent with non- ischemic cardiomyopathy LV thrombus initiated on warfarin with lovenox bridge no evidence of DVT by venous duplex low probability for PE by V/Q scan Acute renal failure Hypertension Alcohol abuse Recommend: Continue medical therapy for systolic heart failure, non-ischemic cardiomyopathy and LV thrombus. Conservative cardiac management. Subjective Date of service: 02/16/18 Principal diagnosis: Cardiomyopathy with large apical thrombus, chest pain Interval history: Patient has no complaints. No cardiac events on telemetry overnight. Objective Vital Signs Temp Pulse Pulse Resp BP BP Pulse Ox 02/16/18 07:00 99.2 F 02/16/18 04:00 97.8 F 92 H 20 116/84 93 02/16/18 00:00 98.4 F 97 H 26 H 116/84 96 02/15/18 22:25 97 H 110/74 02/15/18 22:00 87 02/15/18 20:00 98 H 20 127/94 02/15/18 19:10 95 H 17 02/15/18 17:00 10 L 127/99 99 02/15/18 16:45 96 H 33 H 127/99 97 02/15/18 16:30 90 25 H 123/90 98 02/15/18 16:15 86 21 106/73 95 02/15/18 16:00 93 H 125/91 99 02/15/18 15:45 88 125/88 98 02/15/18 15:30 85 116/85 96 02/15/18 15:15 99 H 125/94 93 02/15/18 15:00 102 H 128/98 96 02/15/18 14:45 89 119/87 99 02/15/18 14:30 98 H 118/86 99 02/15/18 14:15 91 H 121/87 100 02/15/18 14:00 90 107/75 98 02/15/18 13:45 94 H 122/90 98 02/15/18 13:30 96 H 128/92 90 02/15/18 13:16 22 134/99 98 02/15/18 13:00 102 H 111/75 100 02/15/18 12:45 134/99 97 02/15/18 12:30 102 H 124/90 98 02/15/18 12:15 106 H 133/91 98 02/15/18 12:00 97.3 F L 106 H 26 H 142/99 99 02/15/18 11:45 108 H 22 135/95 99 02/15/18 11:30 143/98 99 02/15/18 11:16 108 H 28 H 143/98 97 02/15/18 11:03 34 H 131/96 97 02/15/18 10:45 104 H 131/96 99 02/15/18 10:30 105 H 140/103 99 02/15/18 10:25 104 H 120/84 02/15/18 10:15 101 H 120/84 97 02/15/18 10:00 95 H 134/95 99 02/15/18 09:45 100 H 130/93 98 - Physical Examination General: No Apparent Distress HEENT: Positive: PERRL Cardiac: Positive: Reg Rate and Rhythm Lungs: Positive: Decreased Breath Sounds Neuro: Positive: Grossly Intact Extremities: Absent: edema - Labs and Meds Coagulation 02/16/18 Range/Units 06:07 PT 23.5 H (12.2-14.9) Sec. INR 1.95 H (0.87-1.13) CBC 02/15/18 Range/Units 08:52 WBC 6.9 (4.5-11.0) K/mm3 RBC 4.52 (3.65-5.03) M/mm3 Hgb 13.9 (11.8-15.2) gm/dl Hct 43.0 (35.5-45.6) % Plt Count 233 (140-440) K/mm3 Lymph # 2.8 (1.2-5.4) K/mm3 Lamb # 0.6 (0.0-0.8) K/mm3 Eos # 0.0 (0.0-0.4) K/mm3 Baso # 0.0 (0.0-0.1) K/mm3 Comprehensive Metabolic Panel 02/15/18 02/16/18 Range/Units 08:52 06:07 Sodium 139 137 (137-145) mmol/L Potassium 5.0 5.0 (3.6-5.0) mmol/L Chloride 100.4 101.0 (98-107) mmol/L Carbon Dioxide 27 21 L (22-30) mmol/L BUN 21 H 22 H (9-20) mg/dL Creatinine 1.4 1.4 (0.8-1.5) mg/dL Glucose 98 83 (75-100) mg/dL Calcium 9.3 8.8 (8.4-10.2) mg/dL <JULIANA GARCIA - Last Filed: 02/16/18 14:09> Assessment and Plan - Patient Problems (1) Dilated cardiomyopathy Current Visit: Yes Status: Acute Plan to address problem: The patient presented with a dilated cardiomyopathy, apical left ventricular thrombus on echocardiogram, anticoagulation therapy was initiated during this admission. While undergoing initiation of anticoagulation, he suffered a CVA, but fortunately, his left hemiparesis was transient and he has significantly recovered function on the left side. Today, his INR is 1.9, we will continue optimal anticoagulation with a target INR of 2.0-3.0. Objective Vital Signs Temp Pulse Pulse Resp BP BP Pulse Ox 02/16/18 12:04 97.7 F 02/16/18 12:00 97.7 F 98 H 16 127/92 02/16/18 10:40 95 H 139/103 02/16/18 10:39 95 H 139/103 02/16/18 10:00 100 H 139/92 02/16/18 08:00 97.7 F 98 H 17 131/97 02/16/18 07:00 99.2 F 02/16/18 04:00 97.8 F 92 H 20 116/84 93 02/16/18 00:00 98.4 F 97 H 26 H 116/84 96 02/15/18 22:25 97 H 110/74 02/15/18 22:00 87 02/15/18 20:00 98 H 20 127/94 02/15/18 19:10 95 H 17 02/15/18 17:00 10 L 127/99 99 02/15/18 16:45 96 H 33 H 127/99 97 02/15/18 16:30 90 25 H 123/90 98 02/15/18 16:15 86 21 106/73 95 02/15/18 16:00 93 H 125/91 99 02/15/18 15:45 88 125/88 98 02/15/18 15:30 85 116/85 96 02/15/18 15:15 99 H 125/94 93 02/15/18 15:00 102 H 128/98 96 02/15/18 14:45 89 119/87 99 02/15/18 14:30 98 H 118/86 99 02/15/18 14:15 91 H 121/87 100 - Labs and Meds Coagulation 02/16/18 02/16/18 Range/Units 06:07 13:36 PT 23.5 H 23.5 H (12.2-14.9) Sec. INR 1.95 H 1.95 H (0.87-1.13) Comprehensive Metabolic Panel 02/16/18 Range/Units 06:07 Sodium 137 (137-145) mmol/L Potassium 5.0 (3.6-5.0) mmol/L Chloride 101.0 (98-107) mmol/L Carbon Dioxide 21 L (22-30) mmol/L BUN 22 H (9-20) mg/dL Creatinine 1.4 (0.8-1.5) mg/dL Glucose 83 (75-100) mg/dL Calcium 8.8 (8.4-10.2) mg/dL
[2018-02-16] MEDS: SODIUM CHLORIDE FLUSH SYRINGE 10 ML IV SCH ×2 (10:38→22:44)
[2018-02-16] MEDS: ASPIRIN PO SCH (10:39)
[2018-02-16] MEDS: VITAMIN B-1 PO SCH (10:39)
[2018-02-16] MEDS: FOLVITE PO SCH (10:39)
[2018-02-16] MEDS: ZESTRIL PO SCH (10:39)
[2018-02-16] MEDS: LASIX IV SCH (10:40)
[2018-02-16] MEDS: COREG PO SCH ×2 (10:40→22:41)
[2018-02-16] MEDS: LOVENOX SUB-Q SCH (10:53)
--- NOTE | 2018-02-16 12:21 | Progress Note ---
Assessment and Plan Acute b/l CVA - multifocal acute/subacute non-hemorrhagic CVA, cont aspirin, statin - likely small vessel embolic infract - neurology following, and recommended to cont anticoagulation for Apical Thrombus in the LV Acute systolic heart failure with EF 5-10% on 02/08/18 - Started on Strict input and output, daily weights, Acei, beta jose guadalupe and diuretic Chest pain, ruled out ACS - cont aspirin, statin Severe cardiomyopathy with Large Apical Thrombus in the LV - Started on anticoagulation with lovenox bid, with bridging coumadin therapy - Inr 1.95 today, will hold lovenox, and will monitor INR off lovenox Alcohol induced cardiomyopathy - Extensive counselling on Avoiding ETOH - placed on ciwa Protocol- no withdrawal at this time Acute Respiratory failure, resolved - gina from decompensation CHF Severe pulmonary hypertension Hypertension, hold BP meds for now Acute renal insufficiency, Cr stable Hyperkalemia, resolved Plan discussed with patient and family Disposition when INR therapeutic brief history 47-year-old woman with a history of hypertension, CHF, diagnosed on January 12, comes to the emergency room with complaints of shortness of breath that has not improved since January 12. She was discharged on beta jose guadalupe and Lasix, he stated he was compliant with it. He presented to ER with c/o dyspnea on exertion, orthopnea, PND, lower extremity edema, dry cough. His 2d echo showed Ef of 5-10% with apical thrombus and started on AC with coumadin/lovenox. am he developed acute left sided weakness, CT head unremarkable. MRI/MRA showed multifocal acute/subacute non-hemorrhagic right parietal lobe and occipital lobe cortical infract. Radiological data: MRI brain: IMPRESSION: Multifocal acute/subacute non-hemorrhagic right parietal lobe and occipital lobe cortical infarcts and right parietal lobe white matter infarcts. The pattern is typical of embolic infarcts. 2. No significant mass effect and no hemorrhage. Physical exam Constitutional: Well-nourished well-developed. Head: Normocephalic atraumatic Eyes: Pupils are equal round and reactive to light Nose: No enlarged turbinates, no septal deviation. Mouth: Moist mucous membranes. Neck: Supple no thyromegaly. No bruit. No JVD Heart: Regular rate and rhythm, S1-S2 abnormal. No rubs murmurs or gallop Lungs: Clear to auscultation bilaterally no rales or rhonchi Abdomen: Soft, nontender. Bowel sound are present. Extremities: No edema no cyanosis and no clubbing. Neuro: no focal weakness Skin: No rashes no hyperemic spots Psychiatry: Euthymic. Calm. Subjective Date of service: 02/16/18 Principal diagnosis: Cardiomyopathy with large apical thrombus, chest pain Interval history: Pt seen and examined tolerating diet, able to speak fluently Able to ambulate Denies any chest pain, updated family at bedside Objective - Constitutional Vitals: Vital Signs - 12hr 02/16/18 02/16/18 02/16/18 04:00 07:00 10:00 Temperature 97.8 F 99.2 F Pulse Rate 92 H 100 H Respiratory 20 Rate Blood Pressure Blood Pressure 116/84 [Right] O2 Sat by Pulse 93 Oximetry 02/16/18 02/16/18 02/16/18 10:39 10:40 12:04 Temperature 97.7 F Pulse Rate 95 H 95 H Respiratory Rate Blood Pressure 139/103 139/103 Blood Pressure [Right] O2 Sat by Pulse Oximetry - Labs CBC & Chem 7: 02/15/18 08:52 02/16/18 06:07 Labs: Abnormal lab results 02/16/18 02/16/18 Range/Units 06:07 06:07 PT 23.5 H (12.2-14.9) Sec. INR 1.95 H (0.87-1.13) Carbon Dioxide 21 L (22-30) mmol/L BUN 22 H (9-20) mg/dL
--- NOTE | 2018-02-16 13:56 | Event Note ---
Date: 02/16/18 ICU observation requested for Acute CVA ; stabilized and transferred to IMCU Please reconsult as needed
[2018-02-16 14:01] LABS: INR 1.95 (0.87-1.13)
[2018-02-16] MEDS ORDERED: COUMADIN PO SCH ×3 (17:00)
[2018-02-17 08:07] LABS: INR 1.75 (0.87-1.13)
[2018-02-17] MEDS ORDERED: COUMADIN PO SCH (09:03)
--- NOTE | 2018-02-17 09:38 | Progress Note ---
Assessment and Plan Acute CVA Acute systolic heart failure -uncertain duration Echo is showing 4 chamber dilatation, LVEF 5-10% with a large apical thrombus MPI this admission showing no ischemia with findings consistent with non- ischemic cardiomyopathy Apical LV thrombus initiated on warfarin with lovenox bridge no evidence of DVT by venous duplex low probability for PE by V/Q scan Acute renal failure Hypertension Alcohol abuse Recommend: Continue medical therapy for systolic heart failure, non-ischemic cardiomyopathy. Continue optimal anticoagulation for apical LV thrombus with a target INR of 2.0 -3.0. Conservative cardiac management. Once discharged, patient will follow up with [facility] for an INR check Feb 20 at 410p. Subjective Date of service: 02/17/18 Principal diagnosis: Cardiomyopathy with large apical thrombus, chest pain Interval history: Patient has no complaints. Awaits therapeutic INR. Objective Vital Signs Temp Pulse Resp BP BP Pulse Ox 02/17/18 04:28 97.2 F L 90 16 115/79 99 02/17/18 00:30 98.3 F 18 99/65 02/16/18 22:41 100 H 117/73 02/16/18 19:44 98.1 F 100 H 18 117/73 99 02/16/18 15:43 97.6 F 97 H 18 125/98 98 02/16/18 12:04 97.7 F 02/16/18 12:00 97.7 F 98 H 16 127/92 02/16/18 10:40 95 H 139/103 02/16/18 10:39 95 H 139/103 02/16/18 10:00 100 H 139/92 - Physical Examination General: No Apparent Distress HEENT: Positive: PERRL Cardiac: Positive: Reg Rate and Rhythm Lungs: Positive: Decreased Breath Sounds Neuro: Positive: Grossly Intact Extremities: Absent: edema - Labs and Meds Coagulation 02/16/18 02/17/18 Range/Units 13:36 06:49 PT 23.5 H 21.5 H (12.2-14.9) Sec. INR 1.95 H 1.75 H (0.87-1.13) Comprehensive Metabolic Panel 02/17/18 Range/Units 06:49 Sodium 141 (137-145) mmol/L Potassium 4.6 (3.6-5.0) mmol/L Chloride 102.6 (98-107) mmol/L Carbon Dioxide 25 (22-30) mmol/L BUN 21 H (9-20) mg/dL Creatinine 1.6 H (0.8-1.5) mg/dL Glucose 81 (75-100) mg/dL Calcium 9.0 (8.4-10.2) mg/dL
[2018-02-17] MEDS: ZESTRIL PO SCH (10:45)
[2018-02-17] MEDS: ASPIRIN PO SCH (10:45)
[2018-02-17] MEDS: FOLVITE PO SCH (10:45)
[2018-02-17] MEDS: VITAMIN B-1 PO SCH (10:45)
[2018-02-17] MEDS: LASIX IV SCH (10:46)
[2018-02-17] MEDS: SODIUM CHLORIDE FLUSH SYRINGE 10 ML IV SCH ×2 (10:46→22:21)
[2018-02-17] MEDS: COREG PO SCH ×2 (10:46→21:24)
[2018-02-17] MEDS: LOVENOX SUB-Q SCH ×2 (10:53→21:23)
--- NOTE | 2018-02-17 14:58 | Progress Note ---
Assessment and Plan Acute b/l CVA - multifocal acute/subacute non-hemorrhagic CVA, cont aspirin, statin - likely small vessel embolic infract - neurology following, and recommended to cont anticoagulation for Apical Thrombus in the LV Acute systolic heart failure with EF 5-10% on 02/08/18 - Started on Strict input and output, daily weights, Acei, beta jose guadalupe and diuretic Chest pain, ruled out ACS - cont aspirin, statin Severe cardiomyopathy with Large Apical Thrombus in the LV - anticoagulation with lovenox bid, with bridging coumadin therapy - Inr slightly dropped today, cont to monitor Alcohol induced cardiomyopathy - Extensive counselling on Avoiding ETOH - placed on ciwa Protocol- no withdrawal at this time Acute Respiratory failure, resolved - gina from decompensation CHF Severe pulmonary hypertension Hypertension, hold BP meds for now Acute renal insufficiency, Cr stable Hyperkalemia, resolved Plan discussed with patient and family Disposition when INR therapeutic brief history 47-year-old woman with a history of hypertension, CHF, diagnosed on January 12, comes to the emergency room with complaints of shortness of breath that has not improved since January 12. She was discharged on beta jose guadalupe and Lasix, he stated he was compliant with it. He presented to ER with c/o dyspnea on exertion, orthopnea, PND, lower extremity edema, dry cough. His 2d echo showed Ef of 5-10% with apical thrombus and started on AC with coumadin/lovenox. am he developed acute left sided weakness, CT head unremarkable. MRI/MRA showed multifocal acute/subacute non-hemorrhagic right parietal lobe and occipital lobe cortical infract. Radiological data: MRI brain: IMPRESSION: Multifocal acute/subacute non-hemorrhagic right parietal lobe and occipital lobe cortical infarcts and right parietal lobe white matter infarcts. The pattern is typical of embolic infarcts. 2. No significant mass effect and no hemorrhage. Physical exam Constitutional: Well-nourished well-developed. Head: Normocephalic atraumatic Eyes: Pupils are equal round and reactive to light Nose: No enlarged turbinates, no septal deviation. Mouth: Moist mucous membranes. Neck: Supple no thyromegaly. No bruit. No JVD Heart: Regular rate and rhythm, S1-S2 abnormal. No rubs murmurs or gallop Lungs: Clear to auscultation bilaterally no rales or rhonchi Abdomen: Soft, nontender. Bowel sound are present. Extremities: No edema no cyanosis and no clubbing. Neuro: no focal weakness Skin: No rashes no hyperemic spots Psychiatry: Euthymic. Calm. Subjective Date of service: 02/17/18 Principal diagnosis: Cardiomyopathy with large apical thrombus, chest pain Interval history: Pt seen and examined tolerating diet, able to speak fluently Able to ambulate Denies any chest pain, updated family at bedside Objective - Constitutional Vitals: Vital Signs - 12hr 02/17/18 02/17/18 02/17/18 04:28 08:23 10:00 Temperature 97.2 F L 98.1 F Pulse Rate 90 96 H 96 H Respiratory 16 16 Rate Respiratory 20 Rate [chest pain] Blood Pressure 115/79 130/91 O2 Sat by Pulse 99 98 Oximetry 02/17/18 02/17/18 10:45 10:46 Temperature Pulse Rate 92 H 92 H Respiratory Rate Respiratory Rate [chest pain] Blood Pressure 130/60 130/60 O2 Sat by Pulse Oximetry - Labs CBC & Chem 7: 02/15/18 08:52 02/17/18 06:49 Labs: Abnormal lab results 02/17/18 02/17/18 Range/Units 06:49 06:49 PT 21.5 H (12.2-14.9) Sec. INR 1.75 H (0.87-1.13) BUN 21 H (9-20) mg/dL Creatinine 1.6 H (0.8-1.5) mg/dL
[2018-02-17] MEDS: COUMADIN PO SCH (17:34)
[2018-02-18 04:57] LABS: INR 1.86 (0.87-1.13)
[2018-02-18] MEDS: SODIUM CHLORIDE FLUSH SYRINGE 10 ML IV SCH ×2 (09:21→22:00)
[2018-02-18] MEDS: ASPIRIN PO SCH (09:21)
[2018-02-18] MEDS: FOLVITE PO SCH (09:21)
[2018-02-18] MEDS: VITAMIN B-1 PO SCH (09:21)
[2018-02-18] MEDS: LOVENOX SUB-Q SCH ×2 (09:22→22:19)
[2018-02-18] MEDS: LASIX IV SCH (09:22)
[2018-02-18] MEDS: ZESTRIL PO SCH (09:23)
[2018-02-18] MEDS: COREG PO SCH ×2 (09:23→22:19)
--- NOTE | 2018-02-18 09:58 | Progress Note ---
Assessment and Plan 1. Acute CVA 2. Dilated nonischemic cardiomyopathy with four-chamber dilation CVA or global LV hypokinesis with left ventricular apical thrombus. Left ventricular ejection fraction 5-10%. 3. Essential hypertension 4. Renal insufficiency 5. History of alcohol abuse Plan. Continue present medication. Continue present management plan as previously outlined Subjective Date of service: 02/18/18 Principal diagnosis: Cardiomyopathy with large apical thrombus, chest pain Interval history: No cardiac symptoms. Objective Vital Signs Temp Pulse Resp Resp BP Pulse Ox 02/18/18 09:23 88 118/80 02/18/18 07:21 97.9 F 90 20 112/79 98 02/18/18 04:43 98.0 F 85 20 112/69 99 02/18/18 00:08 97.7 F 86 20 110/77 98 02/17/18 22:00 87 02/17/18 20:24 98.2 F 89 20 116/78 99 02/17/18 17:37 20 02/17/18 16:28 98.1 F 90 16 101/74 98 02/17/18 12:26 98.1 F 91 H 18 114/78 99 02/17/18 10:46 92 H 130/60 02/17/18 10:45 92 H 130/60 02/17/18 10:00 96 H 20 - Physical Examination General: Appears Well, No Apparent Distress HEENT: Positive: PERRL Neck: Positive: neck supple Cardiac: Positive: Reg Rate and Rhythm, S1/S2, S3, PMI, Laterally Displaced Lungs: Positive: clear to auscultation, No Wheeze, Rales, Rhonchi Neuro: Positive: Grossly Intact Abdomen: Positive: Soft Extremities: Absent: edema - Labs and Meds Coagulation 02/18/18 Range/Units 04:08 PT 22.6 H (12.2-14.9) Sec. INR 1.86 H (0.87-1.13) - Imaging and Cardiology EKG: report reviewed
--- NOTE | 2018-02-18 13:01 | Progress Note ---
Assessment and Plan - Patient Problems (1) Acute CVA (cerebrovascular accident) Current Visit: Yes Status: Acute Plan to address problem: Patient with acute CVA initiated anticoagulation patient has apical thrombus started on Lovenox bridge to Coumadin. INR today is 1.86 plan is to discharge her INR is therapeutic. Tentative discharge tomorrow. (2) Acute chest pain Current Visit: Yes Status: Acute Plan to address problem: Acute chest pain secondary most likely due to thrombosis and underlying coronary disease. Patient at present remains chest pain-free. (3) Acute systolic CHF (congestive heart failure) Current Visit: Yes Status: Acute Plan to address problem: Patient's heart failure fairly well compensated at this particular time. Patient has ejection fraction of 5-10%. Patient on MARGOT inhibitor and beta jose guadalupe diuretic and afterload lead nurse. Follow-up will most likely need cardiac rehabilitation. (4) Dilated cardiomyopathy Current Visit: Yes Status: Acute Plan to address problem: Severe dilated cardiomyopathy 4 chambers. Left apical thrombus continue Coumadin follow-up and outpatient or cardiology. (5) Hypertensive urgency Current Visit: Yes Status: Resolved (6) Severe pulmonary arterial systolic hypertension Current Visit: Yes Status: Acute Subjective Date of service: 02/18/18 Principal diagnosis: Cardiomyopathy with large apical thrombus, chest pain Interval history: Hospital course uncomplicated over the p.m. patient seen and examined all questions answered to patient and family's satisfaction today. Detailed discussion about INR and discharge. Objective - Constitutional Vitals: Vital Signs - 12hr 02/18/18 02/18/18 02/18/18 04:43 07:21 09:23 Temperature 98.0 F 97.9 F Pulse Rate 85 90 88 Respiratory 20 20 Rate Blood Pressure 112/69 112/79 118/80 O2 Sat by Pulse 99 98 Oximetry 02/18/18 11:40 Temperature 97.5 F L Pulse Rate 90 Respiratory 20 Rate Blood Pressure 100/69 O2 Sat by Pulse 95 Oximetry General appearance: Present: no acute distress, well-nourished - EENT Eyes: PERRL, EOM intact ENT: hearing intact, clear oral mucosa Ears: bilateral: normal - Neck Neck: supple, normal ROM - Respiratory Respiratory: bilateral: diminished, rhonchi - Breasts Breasts: normal - Cardiovascular Rhythm: regular Heart Sounds: Present: S1 & S2. Absent: gallop, rub Extremities: pulses intact, pulses symmetrical, No edema, normal color, Full ROM - Gastrointestinal General gastrointestinal: Present: soft, non-tender, non-distended, normal bowel sounds - Genitourinary Male genitourinary: normal - Integumentary Integumentary: clear, warm, dry - Musculoskeletal Musculoskeletal: strength equal bilaterally, other - Neurologic Neurologic: moves all extremities - Psychiatric Psychiatric: memory intact, appropriate mood/affect, intact judgment & insight - Labs CBC & Chem 7: 02/15/18 08:52 02/17/18 06:49 Labs: Abnormal lab results 02/18/18 Range/Units 04:08 PT 22.6 H (12.2-14.9) Sec. INR 1.86 H (0.87-1.13)
[2018-02-18] MEDS: COUMADIN PO SCH (18:06)
[2018-02-19 08:24] LABS: INR 1.89 (0.87-1.13)
[2018-02-19 09:17] LABS: BUN/Creatinine Ratio 14; Blood Urea Nitrogen 21 mg/dL (9-20); Calcium 8.9 mg/dL (8.4-10.2); Hemolysis Index 13
--- NOTE | 2018-02-19 10:02 | Progress Note ---
Assessment and Plan 1. Acute CVA 2. Dilated nonischemic cardiomyopathy with four-chamber dilation CVA or global LV hypokinesis with left ventricular apical thrombus. Left ventricular ejection fraction 5-10%. 3. Essential hypertension 4. Renal insufficiency 5. History of alcohol abuse Plan. Continue present medication. Continue present management plan as previously outlined Discharge planning Subjective Date of service: 02/19/18 Principal diagnosis: Cardiomyopathy with large apical thrombus, chest pain Interval history: No cardiac symptoms. Objective Vital Signs Temp Pulse Resp Resp BP BP Pulse Ox 02/19/18 08:55 17 02/19/18 04:55 98.9 F 87 18 111/75 100 02/19/18 00:19 98.9 F 89 20 112/78 98 02/18/18 22:19 92 H 110/77 02/18/18 22:00 92 H 20 02/18/18 19:57 98.1 F 90 20 99/67 99 02/18/18 16:41 97.3 F L 89 20 107/72 98 02/18/18 11:40 97.5 F L 90 20 100/69 95 - Physical Examination General: Appears Well, No Apparent Distress HEENT: Positive: PERRL Neck: Positive: neck supple Cardiac: Positive: Regular Rate, PMI, Laterally Displaced. Negative: S3, S4 Lungs: Positive: clear to auscultation, No Wheeze, Rales, Rhonchi Neuro: Positive: Grossly Intact Abdomen: Positive: Soft Extremities: Absent: edema - Labs and Meds Coagulation 02/19/18 Range/Units 07:36 PT 22.9 H (12.2-14.9) Sec. INR 1.89 H (0.87-1.13) Comprehensive Metabolic Panel 02/19/18 Range/Units 08:17 Sodium 140 (137-145) mmol/L Potassium 4.7 (3.6-5.0) mmol/L Chloride 101.6 (98-107) mmol/L Carbon Dioxide 26 (22-30) mmol/L BUN 21 H (9-20) mg/dL Creatinine 1.5 (0.8-1.5) mg/dL Glucose 86 (75-100) mg/dL Calcium 8.9 (8.4-10.2) mg/dL - Imaging and Cardiology EKG: report reviewed
[2018-02-19] MEDS: VITAMIN B-1 PO SCH (10:08)
[2018-02-19] MEDS: ZESTRIL PO SCH (10:08)
[2018-02-19] MEDS: LASIX IV SCH (10:09)
[2018-02-19] MEDS: ASPIRIN PO SCH (10:09)
[2018-02-19] MEDS: FOLVITE PO SCH (10:09)
[2018-02-19] MEDS: COREG PO SCH ×2 (10:09→22:16)
[2018-02-19] MEDS: LOVENOX SUB-Q SCH ×2 (10:09→22:17)
[2018-02-19] MEDS: SODIUM CHLORIDE FLUSH SYRINGE 10 ML IV SCH ×2 (10:10→22:17)
--- NOTE | 2018-02-19 15:00 | Progress Note ---
Assessment and Plan Acute b/l CVA - multifocal acute/subacute non-hemorrhagic CVA, cont aspirin, statin - likely small vessel embolic infract - neurology following, and recommended to cont anticoagulation for Apical Thrombus in the LV Acute systolic heart failure with EF 5-10% on 02/08/18 - Started on Strict input and output, daily weights, Acei, beta jose guadalupe and diuretic Chest pain, ruled out ACS - cont aspirin, statin Severe cardiomyopathy with Large Apical Thrombus in the LV - anticoagulation with lovenox bid, with bridging coumadin therapy - Monitor INR Alcohol induced cardiomyopathy - Extensive counselling on Avoiding ETOH - placed on ciwa Protocol- no withdrawal at this time Acute Respiratory failure, resolved - gina from decompensation CHF Severe pulmonary hypertension Hypertension, hold BP meds for now Acute renal insufficiency, Cr stable Hyperkalemia, resolved Plan discussed with patient and family Disposition when INR therapeutic brief history 47-year-old woman with a history of hypertension, CHF, diagnosed on January 12, comes to the emergency room with complaints of shortness of breath that has not improved since January 12. She was discharged on beta jose guadalupe and Lasix, he stated he was compliant with it. He presented to ER with c/o dyspnea on exertion, orthopnea, PND, lower extremity edema, dry cough. His 2d echo showed Ef of 5-10% with apical thrombus and started on AC with coumadin/lovenox. am he developed acute left sided weakness, CT head unremarkable. MRI/MRA showed multifocal acute/subacute non-hemorrhagic right parietal lobe and occipital lobe cortical infract. Radiological data: MRI brain: IMPRESSION: Multifocal acute/subacute non-hemorrhagic right parietal lobe and occipital lobe cortical infarcts and right parietal lobe white matter infarcts. The pattern is typical of embolic infarcts. 2. No significant mass effect and no hemorrhage. Physical exam Constitutional: Well-nourished well-developed. Head: Normocephalic atraumatic Eyes: Pupils are equal round and reactive to light Nose: No enlarged turbinates, no septal deviation. Mouth: Moist mucous membranes. Neck: Supple no thyromegaly. No bruit. No JVD Heart: Regular rate and rhythm, S1-S2 abnormal. No rubs murmurs or gallop Lungs: Clear to auscultation bilaterally no rales or rhonchi Abdomen: Soft, nontender. Bowel sound are present. Extremities: No edema no cyanosis and no clubbing. Neuro: no focal weakness Skin: No rashes no hyperemic spots Psychiatry: Euthymic. Calm. Subjective Date of service: 02/19/18 Principal diagnosis: Cardiomyopathy with large apical thrombus, chest pain Interval history: Pt seen and examined tolerating diet, wants to go home Denies any chest pain, updated family at bedside Objective - Constitutional Vitals: Vital Signs - 12hr 02/19/18 02/19/18 02/19/18 04:22 04:55 08:00 Temperature 98.9 F 98.5 F Pulse Rate 90 87 Respiratory 18 Rate Blood Pressure 111/75 Blood Pressure 111/75 [Right] O2 Sat by Pulse 100 100 Oximetry 02/19/18 02/19/18 02/19/18 08:03 08:55 10:00 Temperature Pulse Rate 90 90 Respiratory 20 17 Rate Blood Pressure 121/85 Blood Pressure [Right] O2 Sat by Pulse 99 Oximetry 02/19/18 02/19/18 02/19/18 10:08 10:09 12:00 Temperature 98.0 F Pulse Rate 90 90 Respiratory Rate Blood Pressure 121/85 121/85 Blood Pressure [Right] O2 Sat by Pulse Oximetry 02/19/18 12:10 Temperature Pulse Rate 82 Respiratory 18 Rate Blood Pressure 106/70 Blood Pressure [Right] O2 Sat by Pulse 100 Oximetry - Labs CBC & Chem 7: 02/15/18 08:52 02/19/18 08:17 Labs: Abnormal lab results 02/19/18 02/19/18 Range/Units 07:36 08:17 PT 22.9 H (12.2-14.9) Sec. INR 1.89 H (0.87-1.13) BUN 21 H (9-20) mg/dL
[2018-02-19] MEDS: COUMADIN PO SCH (17:43)
[2018-02-20 07:35] LABS: INR 1.9 (0.87-1.13)
--- NOTE | 2018-02-20 09:30 | Progress Note ---
Assessment and Plan Acute CVA Acute systolic heart failure -uncertain duration Echo is showing 4 chamber dilatation, LVEF 5-10% with a large apical thrombus MPI this admission showing no ischemia with findings consistent with non- ischemic cardiomyopathy Apical LV thrombus initiated on warfarin with lovenox bridge no evidence of DVT by venous duplex low probability for PE by V/Q scan Acute renal failure Hypertension Alcohol abuse Recommend: Continue medical therapy for systolic heart failure, non-ischemic cardiomyopathy. Continue optimal anticoagulation for apical LV thrombus with a target INR of 2.0 -3.0. Conservative cardiac management. Subjective Date of service: 02/20/18 Principal diagnosis: Cardiomyopathy with large apical thrombus, chest pain Interval history: Awaits therapeutic INR. Objective Vital Signs Temp Pulse Pulse Resp BP BP Pulse Ox 02/20/18 08:00 98.0 F 92 H 20 110/70 98 02/20/18 05:04 98.1 F 88 16 107/77 96 02/19/18 22:55 90 02/19/18 22:16 92 H 110/77 02/19/18 22:10 92 H 18 99 02/19/18 19:32 98.4 F 92 H 18 110/77 99 02/19/18 16:00 98.7 F 89 18 122/75 99 02/19/18 12:10 82 18 106/70 100 02/19/18 12:00 98.0 F 02/19/18 10:09 90 121/85 02/19/18 10:08 90 121/85 02/19/18 10:00 90 - Physical Examination General: Appears Well HEENT: Positive: PERRL Cardiac: Positive: Reg Rate and Rhythm Neuro: Positive: Grossly Intact Extremities: Absent: edema - Labs and Meds Coagulation 02/20/18 Range/Units 05:35 PT 23.0 H (12.2-14.9) Sec. INR 1.90 H (0.87-1.13)
[2018-02-20] MEDS: LASIX IV SCH (10:25)
[2018-02-20] MEDS: VITAMIN B-1 PO SCH (10:25)
[2018-02-20] MEDS: ASPIRIN PO SCH (10:25)
[2018-02-20] MEDS: LOVENOX SUB-Q SCH (10:25)
[2018-02-20] MEDS: FOLVITE PO SCH (10:25)
[2018-02-20] MEDS: ZESTRIL PO SCH (10:26)
[2018-02-20] MEDS: SODIUM CHLORIDE FLUSH SYRINGE 10 ML IV SCH ×2 (10:27→21:41)
[2018-02-20] MEDS: COREG PO SCH ×2 (10:30→21:42)
[2018-02-20] MEDS: COUMADIN PO SCH (17:09)
--- NOTE | 2018-02-20 18:22 | Progress Note ---
Assessment and Plan Severe cardiomyopathy with Large Apical Thrombus in the LV - anticoagulation with lovenox bid, with bridging coumadin therapy - Monitor INR, coumadin diet Acute b/l CVA - multifocal acute/subacute non-hemorrhagic CVA, cont aspirin, statin - likely small vessel embolic infract - neurology following, and recommended to cont anticoagulation for Apical Thrombus in the LV Acute systolic heart failure with EF 5-10% on 02/08/18 - Started on Strict input and output, daily weights, ACEi, beta jose guadalupe and diuretic Chest pain, ruled out ACS - cont aspirin, statin Alcohol induced cardiomyopathy - Extensive counselling on Avoiding ETOH - placed on ciwa Protocol- no withdrawal at this time Acute Respiratory failure, resolved - gina from decompensation CHF Severe pulmonary hypertension Hypertension, hold BP meds for now Acute renal insufficiency, Cr stable Hyperkalemia, resolved Plan discussed with patient and family Disposition when INR therapeutic brief history 47-year-old woman with a history of hypertension, CHF, diagnosed on January 12, comes to the emergency room with complaints of shortness of breath that has not improved since January 12. She was discharged on beta jose guadalupe and Lasix, he stated he was compliant with it. He presented to ER with c/o dyspnea on exertion, orthopnea, PND, lower extremity edema, dry cough. His 2d echo showed Ef of 5-10% with apical thrombus and started on AC with coumadin/lovenox. am he developed acute left sided weakness, CT head unremarkable. MRI/MRA showed multifocal acute/subacute non-hemorrhagic right parietal lobe and occipital lobe cortical infract. Radiological data: MRI brain: IMPRESSION: Multifocal acute/subacute non-hemorrhagic right parietal lobe and occipital lobe cortical infarcts and right parietal lobe white matter infarcts. The pattern is typical of embolic infarcts. 2. No significant mass effect and no hemorrhage. Physical exam Constitutional: Well-nourished well-developed. Head: Normocephalic atraumatic Eyes: Pupils are equal round and reactive to light Nose: No enlarged turbinates, no septal deviation. Mouth: Moist mucous membranes. Neck: Supple no thyromegaly. No bruit. No JVD Heart: Regular rate and rhythm, S1-S2 abnormal. No rubs murmurs or gallop Lungs: Clear to auscultation bilaterally no rales or rhonchi Abdomen: Soft, nontender. Bowel sound are present. Extremities: No edema no cyanosis and no clubbing. Neuro: no focal weakness Skin: No rashes no hyperemic spots Psychiatry: Euthymic. Calm. Subjective Date of service: 02/20/18 Principal diagnosis: Cardiomyopathy with large apical thrombus, chest pain Interval history: Pt seen and examined tolerating diet, wants to go home Denies any chest pain, updated family at bedside Objective - Constitutional Vitals: Vital Signs - 12hr 02/20/18 02/20/18 02/20/18 07:43 08:00 10:00 Temperature 98.0 F Pulse Rate 91 H 92 H 92 H Pulse Rate [ 94 H Apical] Pulse Rate [ Left] Respiratory 18 20 17 Rate Blood Pressure 110/75 Blood Pressure 110/70 [Right] O2 Sat by Pulse 98 98 Oximetry 02/20/18 02/20/18 02/20/18 10:26 10:30 12:00 Temperature 98.3 F Pulse Rate 94 H 94 H Pulse Rate [ Apical] Pulse Rate [ Left] Respiratory Rate Blood Pressure 112/68 112/68 Blood Pressure [Right] O2 Sat by Pulse Oximetry 02/20/18 02/20/18 02/20/18 12:19 17:10 17:33 Temperature 98.0 F 98.3 F Pulse Rate 92 H 86 91 H Pulse Rate [ Apical] Pulse Rate [ Left] Respiratory 18 20 20 Rate Blood Pressure 107/70 111/65 103/76 Blood Pressure [Right] O2 Sat by Pulse 99 100 100 Oximetry 02/20/18 02/20/18 18:01 18:03 Temperature 98.0 F 98.0 F Pulse Rate 85 Pulse Rate [ Apical] Pulse Rate [ 85 Left] Respiratory 20 20 Rate Blood Pressure Blood Pressure 111/68 [Right] O2 Sat by Pulse 99 Oximetry - Labs CBC & Chem 7: 02/15/18 08:52 02/19/18 08:17 Labs: Abnormal lab results 02/20/18 Range/Units 05:35 PT 23.0 H (12.2-14.9) Sec. INR 1.90 H (0.87-1.13)
[2018-02-20] MEDS: PERCOCET 5/325 PO PRN (19:05)
[2018-02-20] MEDS ORDERED: HEPARIN/ 0.45% NACL-25,000 UNIT/500 ML 25,000 UNIT/500 ML BAG IV SCH (20:00)
[2018-02-20 20:55] LABS: Hematocrit 42.7 % (35.5-45.6); Hemoglobin 13.9 gm/dl (11.8-15.2)
[2018-02-20 21:08] LABS: INR 1.86 (0.87-1.13)
[2018-02-20 21:09] LABS: Partial Thromboplastin Time 45.1 Sec. (24.2-36.6)
[2018-02-20 21:10] LABS: Heparin anti-factor XA 1.39 U.I./ml (0.3-0.7)
[2018-02-21 03:42] LABS: INR 2.02 (0.87-1.13)
[2018-02-21 03:43] LABS: Heparin anti-factor XA 1.5 U.I./ml (0.3-0.7)
[2018-02-21] MEDS: LASIX IV SCH (10:09)
[2018-02-21] MEDS: ASPIRIN PO SCH (10:09)
[2018-02-21] MEDS: VITAMIN B-1 PO SCH (10:09)
[2018-02-21] MEDS: FOLVITE PO SCH (10:09)
[2018-02-21] MEDS: SODIUM CHLORIDE FLUSH SYRINGE 10 ML IV SCH ×2 (10:12→22:53)
[2018-02-21] MEDS: COREG PO SCH ×2 (10:12→21:54)
[2018-02-21] MEDS: ZESTRIL PO SCH (10:12)
[2018-02-21] MEDS: PERCOCET 5/325 PO PRN (10:23)
--- NOTE | 2018-02-21 12:16 | Progress Note ---
Assessment and Plan Acute CVA Acute systolic heart failure -uncertain duration Echo is showing 4 chamber dilatation, LVEF 5-10% with a large apical thrombus MPI this admission showing no ischemia with findings consistent with non- ischemic cardiomyopathy Apical LV thrombus initiated on warfarin with lovenox bridge no evidence of DVT by venous duplex low probability for PE by V/Q scan Acute renal failure Hypertension Alcohol abuse Recommend: Continue medical therapy for systolic heart failure, non-ischemic cardiomyopathy. Continue optimal anticoagulation for apical LV thrombus with a target INR of 2.0 -3.0. Stable cardiac mcrae for discharge home today. Patient advised to f/u for an INR check at our office in 3-5 days. Subjective Date of service: 02/21/18 Principal diagnosis: Cardiomyopathy with large apical thrombus, chest pain Interval history: Patient has no complaints. His INR today is therapeutic at 2.0. Objective Vital Signs Temp Pulse Pulse Pulse Resp Resp BP 02/21/18 10:23 16 02/21/18 10:12 87 104/69 02/21/18 10:00 74 16 16 02/21/18 01:35 97.5 F L 81 18 02/20/18 22:10 82 18 02/20/18 22:00 18 02/20/18 21:42 82 85/83 02/20/18 20:51 97.9 F 82 18 85/53 02/20/18 20:39 80 02/20/18 20:05 18 02/20/18 19:05 16 02/20/18 18:03 98.0 F 85 20 02/20/18 18:01 98.0 F 85 20 02/20/18 17:33 98.3 F 91 H 20 103/76 02/20/18 17:10 98.0 F 86 20 111/65 02/20/18 12:19 92 H 18 107/70 BP Pulse Ox 02/21/18 10:23 02/21/18 10:12 02/21/18 10:00 02/21/18 01:35 87/55 96 02/20/18 22:10 92 02/20/18 22:00 02/20/18 21:42 02/20/18 20:51 97 02/20/18 20:39 02/20/18 20:05 02/20/18 19:05 02/20/18 18:03 111/68 99 02/20/18 18:01 02/20/18 17:33 100 02/20/18 17:10 100 02/20/18 12:19 99 - Physical Examination General: Appears Well HEENT: Positive: PERRL Cardiac: Positive: Reg Rate and Rhythm Neuro: Positive: Grossly Intact Extremities: Absent: edema - Labs and Meds Coagulation 02/20/18 02/21/18 Range/Units 20:19 03:05 PT 22.6 H 24.2 H (12.2-14.9) Sec. INR 1.86 H 2.02 H (0.87-1.13) APTT 45.1 H (24.2-36.6) Sec. CBC 02/20/18 Range/Units 20:19 Hgb 13.9 (11.8-15.2) gm/dl Hct 42.7 (35.5-45.6) % Plt Count 237 (140-440) K/mm3
--- NOTE | 2018-02-21 14:12 | Progress Note ---
Assessment and Plan Severe cardiomyopathy with Large Apical Thrombus in the LV - started anticoagulation bridging therapy with coumadin - Monitor INR, coumadin diet - INR 2.02 today, will stop heparin drip - monitor INR of heparin, if 2-3 tomorrow will d/c home Acute b/l CVA - multifocal acute/subacute non-hemorrhagic CVA, cont aspirin, statin - likely small vessel embolic infract - neurology following, and recommended to cont anticoagulation for Apical Thrombus in the LV Acute systolic heart failure with EF 5-10% on 02/08/18 - Started on Strict input and output, daily weights, ACEi, beta jose guadalupe and diuretic Chest pain, ruled out ACS - cont aspirin, statin Alcohol induced cardiomyopathy - Extensive counselling on Avoiding ETOH - placed on ciwa Protocol- no withdrawal at this time Acute Respiratory failure, resolved - gina from decompensation CHF Severe pulmonary hypertension Hypertension, hold BP meds for now Acute renal insufficiency, Cr stable Hyperkalemia, resolved Plan discussed with patient and family Disposition when INR remains therapeutic of heparin brief history 47-year-old woman with a history of hypertension, CHF, diagnosed on January 12, comes to the emergency room with complaints of shortness of breath that has not improved since January 12. She was discharged on beta jose guadalupe and Lasix, he stated he was compliant with it. He presented to ER with c/o dyspnea on exertion, orthopnea, PND, lower extremity edema, dry cough. His 2d echo showed Ef of 5-10% with apical thrombus and started on AC with coumadin/lovenox. am he developed acute left sided weakness, CT head unremarkable. MRI/MRA showed multifocal acute/subacute non-hemorrhagic right parietal lobe and occipital lobe cortical infract. Radiological data: MRI brain: IMPRESSION: Multifocal acute/subacute non-hemorrhagic right parietal lobe and occipital lobe cortical infarcts and right parietal lobe white matter infarcts. The pattern is typical of embolic infarcts. 2. No significant mass effect and no hemorrhage. Physical exam Constitutional: Well-nourished well-developed. Head: Normocephalic atraumatic Eyes: Pupils are equal round and reactive to light Nose: No enlarged turbinates, no septal deviation. Mouth: Moist mucous membranes. Neck: Supple no thyromegaly. No bruit. No JVD Heart: Regular rate and rhythm, S1-S2 abnormal. No rubs murmurs or gallop Lungs: Clear to auscultation bilaterally no rales or rhonchi Abdomen: Soft, nontender. Bowel sound are present. Extremities: No edema no cyanosis and no clubbing. Neuro: no focal weakness Skin: No rashes no hyperemic spots Psychiatry: Euthymic. Calm. Subjective Date of service: 02/21/18 Principal diagnosis: Cardiomyopathy with large apical thrombus, chest pain Interval history: Pt seen and examined tolerating diet, wants to go home Denies any chest pain, updated family at bedside Objective - Constitutional Vitals: Vital Signs - 12hr 02/21/18 02/21/18 02/21/18 10:00 10:12 10:23 Pulse Rate 78 87 Pulse Rate [ 74 Apical] Respiratory 16 16 Rate Respiratory 16 Rate [Right Abdomen] Blood Pressure 104/69 - Labs CBC & Chem 7: 02/20/18 20:19 02/19/18 08:17 Labs: Abnormal lab results 02/20/18 02/21/18 02/21/18 Range/Units 20:19 03:05 09:41 PT 22.6 H 24.2 H (12.2-14.9) Sec. INR 1.86 H 2.02 H (0.87-1.13) APTT 45.1 H (24.2-36.6) Sec. Heparin Anti-Xa Level 1.39 H 1.50 H 1.03 H (0.3-0.7) U.I./ml
[2018-02-21] MEDS: COUMADIN PO SCH (17:14)
[2018-02-22 06:14] LABS: Hemoglobin 13.1 gm/dl (11.8-15.2)
[2018-02-22 06:20] LABS: INR 1.94 (0.87-1.13)
--- NOTE | 2018-02-22 10:11 | Progress Note ---
Assessment and Plan Acute CVA Acute systolic heart failure -uncertain duration Echo is showing 4 chamber dilatation, LVEF 5-10% with a large apical thrombus MPI this admission showing no ischemia with findings consistent with non- ischemic cardiomyopathy Apical LV thrombus initiated on warfarin with lovenox bridge no evidence of DVT by venous duplex low probability for PE by V/Q scan Acute renal failure Hypertension Alcohol abuse Recommend: Continue medical therapy for systolic heart failure, non-ischemic cardiomyopathy. Continue optimal anticoagulation for apical LV thrombus with a target INR of 2.0 -3.0. We will give 10mg of warfarin today. Low vitamin K diet. Subjective Date of service: 02/22/18 Principal diagnosis: Cardiomyopathy with large apical thrombus, chest pain Interval history: Patient has no complaints. Awaits therapeutic INR. Objective Vital Signs Temp Pulse Pulse Resp Resp BP Pulse Ox 02/22/18 07:57 98.1 F 90 18 106/80 100 02/22/18 04:31 98.1 F 18 104/71 02/22/18 00:20 98.5 F 97 H 17 101/66 97 02/21/18 22:00 100 H 18 18 02/21/18 21:54 88 102/55 02/21/18 19:55 99 H 02/21/18 19:45 98.2 F 94 H 18 106/63 99 02/21/18 16:21 98.0 F 88 18 102/55 97 02/21/18 12:54 98.2 F 79 18 94/55 97 02/21/18 10:23 16 02/21/18 10:12 87 104/69 - Physical Examination General: Appears Well HEENT: Positive: PERRL Cardiac: Positive: Reg Rate and Rhythm Neuro: Positive: Grossly Intact Extremities: Absent: edema - Labs and Meds Coagulation 02/22/18 Range/Units 05:45 PT 23.4 H (12.2-14.9) Sec. INR 1.94 H (0.87-1.13) CBC 02/22/18 Range/Units 05:45 Hgb 13.1 (11.8-15.2) gm/dl Hct 40.0 (35.5-45.6) % Plt Count 202 (140-440) K/mm3
[2018-02-22] MEDS: ASPIRIN PO SCH (11:10)
[2018-02-22] MEDS: FOLVITE PO SCH (11:10)
[2018-02-22] MEDS: ZESTRIL PO SCH (11:10)
[2018-02-22] MEDS: COREG PO SCH ×2 (11:10→23:24)
[2018-02-22] MEDS: VITAMIN B-1 PO SCH (11:11)
[2018-02-22] MEDS: LASIX IV SCH (11:12)
[2018-02-22] MEDS: SODIUM CHLORIDE FLUSH SYRINGE 10 ML IV SCH (11:12)
[2018-02-22] MEDS: LOVENOX SUB-Q SCH ×2 (11:27→23:24)
--- NOTE | 2018-02-22 16:25 | Progress Note ---
Assessment and Plan Severe cardiomyopathy with Large Apical Thrombus in the LV - started anticoagulation bridging therapy with coumadin - Monitor INR, coumadin diet - INR 1.9 today after stopping heparin drip - give coumadin 10mg today - monitor INR off heparin, if 2-3 tomorrow will d/c home Acute b/l CVA - multifocal acute/subacute non-hemorrhagic CVA, cont aspirin, statin - likely small vessel embolic infract - neurology following, and recommended to cont anticoagulation for Apical Thrombus in the LV Acute systolic heart failure with EF 5-10% on 02/08/18 - Started on Strict input and output, daily weights, ACEi, beta jose guadalupe and diuretic Chest pain, ruled out ACS - cont aspirin, statin Alcohol induced cardiomyopathy - Extensive counselling on Avoiding ETOH - placed on ciwa Protocol- no withdrawal at this time Acute Respiratory failure, resolved - gina from decompensation CHF Severe pulmonary hypertension Hypertension, hold BP meds for now Acute renal insufficiency, Cr stable Hyperkalemia, resolved Plan discussed with patient and family Disposition when INR remains therapeutic brief history 47-year-old woman with a history of hypertension, CHF, diagnosed on January 12, comes to the emergency room with complaints of shortness of breath that has not improved since January 12. She was discharged on beta jose guadalupe and Lasix, he stated he was compliant with it. He presented to ER with c/o dyspnea on exertion, orthopnea, PND, lower extremity edema, dry cough. His 2d echo showed Ef of 5-10% with apical thrombus and started on AC with coumadin/lovenox. am he developed acute left sided weakness, CT head unremarkable. MRI/MRA showed multifocal acute/subacute non-hemorrhagic right parietal lobe and occipital lobe cortical infract. Radiological data: MRI brain: IMPRESSION: Multifocal acute/subacute non-hemorrhagic right parietal lobe and occipital lobe cortical infarcts and right parietal lobe white matter infarcts. The pattern is typical of embolic infarcts. 2. No significant mass effect and no hemorrhage. Physical exam Constitutional: Well-nourished well-developed. Head: Normocephalic atraumatic Eyes: Pupils are equal round and reactive to light Nose: No enlarged turbinates, no septal deviation. Mouth: Moist mucous membranes. Neck: Supple no thyromegaly. No bruit. No JVD Heart: Regular rate and rhythm, S1-S2 abnormal. No rubs murmurs or gallop Lungs: Clear to auscultation bilaterally no rales or rhonchi Abdomen: Soft, nontender. Bowel sound are present. Extremities: No edema no cyanosis and no clubbing. Neuro: no focal weakness Skin: No rashes no hyperemic spots Psychiatry: Euthymic. Calm. Subjective Date of service: 02/22/18 Principal diagnosis: Cardiomyopathy with large apical thrombus, chest pain Interval history: Pt seen and examined tolerating diet, wants to go home Denies any chest pain, updated family at bedside Objective - Constitutional Vitals: Vital Signs - 12hr 02/22/18 02/22/18 02/22/18 04:31 07:57 12:18 Temperature 98.1 F 98.1 F 98.1 F Pulse Rate 90 97 H Respiratory 18 18 18 Rate Blood Pressure 104/71 106/80 112/76 O2 Sat by Pulse 100 99 Oximetry - Labs CBC & Chem 7: 02/22/18 05:45 02/19/18 08:17 Labs: Abnormal lab results 02/22/18 Range/Units 05:45 PT 23.4 H (12.2-14.9) Sec. INR 1.94 H (0.87-1.13)
[2018-02-22] MEDS ORDERED: COUMADIN PO SCH (17:00)
[2018-02-22] MEDS: PERCOCET 5/325 PO PRN (23:25)
[2018-02-23] MEDS: SODIUM CHLORIDE FLUSH SYRINGE 10 ML IV SCH ×2 (05:46→12:06)
[2018-02-23 07:19] LABS: INR 2.14 (0.87-1.13)
--- NOTE | 2018-02-23 11:20 | Progress Note ---
Assessment and Plan Acute CVA Acute systolic heart failure -uncertain duration Echo is showing 4 chamber dilatation, LVEF 5-10% with a large apical thrombus MPI this admission showing no ischemia with findings consistent with non- ischemic cardiomyopathy Apical LV thrombus initiated on warfarin no evidence of DVT by venous duplex low probability for PE by V/Q scan Acute renal failure Hypertension Alcohol abuse Recommend: Continue medical therapy for systolic heart failure, non-ischemic cardiomyopathy. INR is currently within therapeutic range at 2.14. Continue optimal anticoagulation for apical LV thrombus. Advised low vitamin K diet. Stable cardiac mcrae for discharge today. Patient will f/u at [facility]. as scheduled March 01. Subjective Date of service: 02/23/18 Principal diagnosis: Cardiomyopathy with large apical thrombus, chest pain Interval history: Patient has no complaints. INR is currently 2.14, within therapeutic range. Objective Vital Signs Temp Pulse Resp BP BP Pulse Ox 02/23/18 08:19 97.9 F 58 L 20 114/76 97 02/23/18 07:30 97.9 F 80 20 87/49 97 02/23/18 05:17 93 H 02/23/18 04:26 77 91/56 98 02/23/18 00:05 98.0 F 17 88/53 02/22/18 23:25 20 02/22/18 23:24 93 H 100/60 02/22/18 19:39 97.8 F 93 H 18 100/64 99 02/22/18 16:32 98.1 F 86 18 98/62 99 02/22/18 12:18 98.1 F 97 H 18 112/76 99 - Physical Examination General: Appears Well HEENT: Positive: PERRL Cardiac: Positive: Reg Rate and Rhythm Neuro: Positive: Grossly Intact Extremities: Absent: edema - Labs and Meds Coagulation 02/23/18 Range/Units 06:36 PT 25.3 H (12.2-14.9) Sec. INR 2.14 H (0.87-1.13)
--- NOTE | 2018-02-23 11:43 | Discharge Summary ---
Providers - Providers Date of Admission: 02/07/18 23:53 Date of discharge: 02/23/18 Attending physician: ARLENE SMITH 02/08/18 00:59 Consult to Physician [CONS] Routine Comment: Consulting Provider: JULIANA GARCIA Physician Instructions: Reason For Exam: chf/cp 02/14/18 14:44 Occupational Therapy Evaluate and Treat [CONS] Routine Comment: Reason For Exam: Neuro deficits Physical Therapy Evaluation and Treat [CONS] Routine Comment: Reason For Exam: Neuro deficits 02/14/18 16:43 Consult to Physician [CONS] Routine Comment: Consulting Provider: SNOW CARDOSO Physician Instructions: Reason For Exam: acute cva 02/15/18 11:47 Consult to Physician [CONS] Urgent Comment: Consulting Provider: EMERSON VOGEL Physician Instructions: Reason For Exam: critical care management 02/20/18 13:57 Consult to Dietitian/Nutrition [CONS] Routine Physician Instructions: Reason For Exam: coumadin diet Reason for Consult: Diet education Primary care physician: MICHELLE BEST Hospitalization Condition: Fair Hospital course: brief history 47-year-old woman with a history of hypertension, CHF, diagnosed on January 12, comes to the emergency room with complaints of shortness of breath that has not improved since January 12. She was discharged on beta jose guadalupe and Lasix, he stated he was compliant with it. He presented to ER with c/o dyspnea on exertion, orthopnea, PND, lower extremity edema, dry cough. His 2d echo showed Ef of 5-10% with apical thrombus and started on AC with coumadin/lovenox. am he developed acute left sided weakness, CT head unremarkable. MRI/MRA showed multifocal acute/subacute non-hemorrhagic right parietal lobe and occipital lobe cortical infract. Discharge diagnosis and management: Severe cardiomyopathy with Large Apical Thrombus in the LV - started anticoagulation bridging therapy with coumadin - Monitored INR, placed on coumadin diet - heparin stopped after INR therapeutic Acute b/l CVA - multifocal acute/subacute non-hemorrhagic CVA, cont aspirin, statin - likely small vessel embolic infract - neurology following, and recommended to cont anticoagulation for Apical Thrombus in the LV Acute systolic heart failure with EF 5-10% on 02/08/18 - Started on Strict input and output, daily weights, ACEi, beta jose guadalupe and diuretic Chest pain, ruled out ACS - cont aspirin, statin Alcohol induced cardiomyopathy - Extensive counselling on Avoiding ETOH - placed on ciwa Protocol- no withdrawal at this time Acute Respiratory failure, resolved - nabeelley from decompensation CHF Severe pulmonary hypertension Hypertension, hold BP meds for now Acute renal insufficiency, Cr stable Hyperkalemia, resolved Plan discussed with patient and family Disposition when INR remains therapeutic Radiological data: MRI brain: IMPRESSION: Multifocal acute/subacute non-hemorrhagic right parietal lobe and occipital lobe cortical infarcts and right parietal lobe white matter infarcts. The pattern is typical of embolic infarcts. 2. No significant mass effect and no hemorrhage. Physical exam Constitutional: Well-nourished well-developed. Head: Normocephalic atraumatic Eyes: Pupils are equal round and reactive to light Nose: No enlarged turbinates, no septal deviation. Mouth: Moist mucous membranes. Neck: Supple no thyromegaly. No bruit. No JVD Heart: Regular rate and rhythm, S1-S2 abnormal. No rubs murmurs or gallop Lungs: Clear to auscultation bilaterally no rales or rhonchi Abdomen: Soft, nontender. Bowel sound are present. Extremities: No edema no cyanosis and no clubbing. Neuro: no focal weakness Skin: No rashes no hyperemic spots Psychiatry: Euthymic. Calm. Disposition: DC-01 TO HOME OR SELFCARE Time spent for discharge: 34 minutes Core Measure Documentation - Palliative Care Palliative Care/ Comfort Measures: Not Applicable - Core Measures Any of the following diagnoses?: heart failure, stroke - Heart Failure Discharge Requirements MARGOT/ARB for LVSD if EF <40%: Yes Beta jose guadalupe at discharge: Yes - Stroke Discharge Requirements Statin for LDL = or >70 mg/dl on DC: Yes Anticoag for atrial fib/atrial flutter: Yes Antithrombotic for ischemic stroke: Yes Exam - Constitutional Vitals: Temp Pulse Resp BP Pulse Ox 97.9 F 58 L 20 114/76 97 02/23/18 08:19 02/23/18 08:19 02/23/18 08:19 02/23/18 08:19 02/23/18 08:19 Plan Activity: advance as tolerated Weight Bearing Status: Weight Bear as Tolerated Diet: low fat, low salt Additional Instructions: f/u @ [facility] in one week to follow INR Follow up with: MICHELLE BEST MD [Primary Care Provider] - 3-5 Days Forms: Warfarin Discharge Instruction Prescriptions: AtorvaSTATin [Lipitor] 40 mg PO QHS #30 tablet Aspirin EC [Aspirin Enteric Coated TAB] 81 mg PO QDAY #30 tablet. Carvedilol [Coreg] 6.25 mg PO BID #60 tablet Folic Acid [Folvite] 1 mg PO QDAY #30 tablet Lisinopril [Zestril TAB] 5 mg PO QDAY #30 tablet Thiamine [Vitamin B-1] 100 mg PO QDAY #30 tablet Warfarin [Coumadin] 8 mg PO DAILY@1700 #10 tablet
[2018-02-23] MEDS: COREG PO SCH (12:05)
[2018-02-23] MEDS: ASPIRIN PO SCH (12:05)
[2018-02-23] MEDS: LASIX IV SCH (12:06)
[2018-02-23] MEDS: LOVENOX SUB-Q SCH (12:06)
[2018-02-23] MEDS: FOLVITE PO SCH (12:06)
[2018-02-23] MEDS: VITAMIN B-1 PO SCH (12:07)
[2018-02-23] MEDS: ZESTRIL PO SCH (12:07)
[2018-02-23 12:45] VITALS: BP 122/78
[2018-02-23] MEDS ORDERED: COUMADIN PO SCH (17:00)
== END 2018-02-23 15:15 | disposition home or self-care (01) | DRG 682 ==
LOC: ED 18:13 → 4A 23:53 → CC1 02-14 13:59 → IMCU 02-15 18:05 → 4A 02-16 15:41
PROVIDERS: ADMIT Internal Medicine; ATTEND Internal Medicine
DX: N17.9 Acute kidney failure, unspecified (principal); I63.8 Other cerebral infarction; J96.00 Acute respiratory failure, unspecified whether with hypoxia or hypercapnia; I50.23 Acute on chronic systolic (congestive) heart failure; I24.0 Acute coronary thrombosis not resulting in myocardial infarction; I42.6 Alcoholic cardiomyopathy; I11.0 Hypertensive heart disease with heart failure; I27.20 Pulmonary hypertension, unspecified; E87.5 Hyperkalemia; F10.10 Alcohol abuse, uncomplicated; R94.31 Abnormal electrocardiogram [ECG] [EKG]; I16.0 Hypertensive urgency; Z71.41 Alcohol abuse counseling and surveillance of alcoholic; Z82.49 Family history of ischemic heart disease and other diseases of the circulatory system; Z79.899 Other long term (current) drug therapy
CPT/HCPCS: 36415; 70450; 70496; 70498; 70544; 70547; 70551; 71045; 78452; 78582; 80048; 80053; 80061; 80307; 82550; 82553; 82962; 83880; 84443; 84484; 85014; 85018; 85025; 85027; 85049; 85379; 85520; 85610; 85730; 93005; 93010; 93017; 93306; 93970; A9270-GY; A9502; A9540; A9558; J1644; J1650; J1940; J2270; J2785; J3010; Q9967